=== PATIENT | female | born 1950 | race Asian ===

== ENCOUNTER 2017-01-03 12:34 | Outpatient (RCR) | payer OTHER | END 2017-01-06 | LOC: M CR 12:34 | PROVIDERS: ATTEND Internal Medicine Cardiovascular Disease | DX: I25.10 Atherosclerotic heart disease of native coronary artery without angina pectoris (principal); Z98.61 Coronary angioplasty status ==

== ENCOUNTER 2017-01-07 09:09 | Outpatient (RCR) | payer OTHER | END 2017-02-05 | LOC: M CR 09:09 | PROVIDERS: ATTEND Internal Medicine Cardiovascular Disease | DX: Z51.89 Encounter for other specified aftercare (principal); Z98.61 Coronary angioplasty status; I25.10 Atherosclerotic heart disease of native coronary artery without angina pectoris ==

== ENCOUNTER → 2017-08-17 | Outpatient (REF) | payer OTHER | LOC: M LAB REF 09:40 | DX: N64.59 Other signs and symptoms in breast (principal) | CPT/HCPCS: 88305 ==

== ENCOUNTER → 2018-10-20 | Outpatient (REF) | payer MEDICARE ==
[2018-10-20 12:54] LABS: BASO % 0.5 % (0.0-1.0); EOS # 0.2 10^3/uL (0.0-0.50); EOS % 2.9 % (0.0-3.0); HEMATOCRIT 36.8 % (36.0-47.0); HEMOGLOBIN 11.9 g/dl (12.0-15.5); MEAN CORPUSCULAR HEMOGLOBIN 28.9 pg (27.0-33.0); MEAN CORPUSCULAR HGB CONC 32.3 g/dl (32.0-36.5); MEAN CORPUSCULAR VOLUME 89.3 fl (80.0-96.0); MONO # 0.4 10^3/uL (0.0-0.8); MONO % 7.3 % (0.0-5.0); NEUTROPHILS % 70.8 % (36.0-66.0); PLATELET COUNT, AUTOMATED 250 10^3/uL (150-450); RED BLOOD COUNT 4.12 10^6/uL (4.00-5.40); WHITE BLOOD COUNT 5.6 10^3/uL (4.0-10.0)
[2018-10-20 13:12] LABS: ALBUMIN 3.9 GM/DL (3.2-5.2); ALT/SGPT 36 U/L (12-78); BILIRUBIN,TOTAL 0.4 MG/DL (0.2-1.0); BLOOD UREA NITROGEN 8 MG/DL (7-18); CALCIUM LEVEL 8.9 MG/DL (8.8-10.2); CARBON DIOXIDE LEVEL 25 MEQ/L (21-32); CHLORIDE LEVEL 104 MEQ/L (98-107); CHOLESTEROL LEVEL 112 MG/DL (<200); CHOLESTEROL RISK RATIO 2.871 (<5); CREATININE FOR GFR 0.73 MG/DL (0.55-1.30); GLOMERULAR FILTRATION RATE > 60.0 (>45); GLUCOSE, FASTING 105 MG/DL (70-100); HDL CHOLESTEROL 39 MG/DL (>40); LDL CHOLESTEROL 40 MG/DL (<100); NON-HDL-C 73 MG/DL; POTASSIUM SERUM 4.7 MEQ/L (3.5-5.1); SODIUM LEVEL 135 MEQ/L (136-145); TOTAL PROTEIN 8.2 GM/DL (6.4-8.2); TRIGLYCERIDES LEVEL 166 MG/DL (<150)
[2018-10-20 13:34] LABS: MALB URINE SIEMENS 23.3 MG/L; MAU/CREAT RATIO 14.2 MCG/MG (0.0-30.0)
[2018-10-20 13:42] LABS: HEMOGLOBIN A1c 8.2 %
== END ==
LOC: M SFHCPLAZ 08:44
PROVIDERS: ATTEND Physician Assistant Medical
DX: E11.9 Type 2 diabetes mellitus without complications (principal); I10 Essential (primary) hypertension; E78.2 Mixed hyperlipidemia

== ENCOUNTER → 2018-12-12 | Outpatient (REF) | payer MEDICARE, OTHER ==
[2018-12-12 13:21] LABS: HEMOGLOBIN A1c 6.5 %
== END ==
LOC: M SFHCPLAZ 09:08
PROVIDERS: ATTEND Physician Assistant Medical
DX: E11.9 Type 2 diabetes mellitus without complications (principal)

== ENCOUNTER → 2019-01-15 | Outpatient (REF) | payer MEDICARE, OTHER ==
[2019-01-15 15:26] LABS: BLOOD UREA NITROGEN 13 MG/DL (7-18); CALCIUM LEVEL 9.9 MG/DL (8.8-10.2); CARBON DIOXIDE LEVEL 27 MEQ/L (21-32); CHLORIDE LEVEL 103 MEQ/L (98-107); CREATININE FOR GFR 0.97 MG/DL (0.55-1.30); GLOMERULAR FILTRATION RATE > 60.0 (>39); GLUCOSE, FASTING 136 MG/DL (70-100); POTASSIUM SERUM 4.5 MEQ/L (3.5-5.1); SODIUM LEVEL 139 MEQ/L (136-145); TROPONIN I < 0.02 NG/ML (< 0.10)
[2019-01-15 15:52] LABS: CREATININE, URINE < 13.0 MG/DL; MALB URINE SIEMENS < 5.0 MG/L
== END ==
LOC: M SFHCPLAZ 13:33
PROVIDERS: ATTEND Family Medicine
DX: I16.0 Hypertensive urgency (principal)
CPT/HCPCS: 36415; 80048; 82043; 84484; G0463

== ENCOUNTER → 2019-04-02 | Outpatient (REF) | payer MEDICARE, OTHER ==
[2019-04-02 16:48] LABS: BLOOD UREA NITROGEN 23 MG/DL (7-18); CALCIUM LEVEL 9.6 MG/DL (8.8-10.2); CARBON DIOXIDE LEVEL 25 MEQ/L (21-32); CHLORIDE LEVEL 105 MEQ/L (98-107); CREATININE FOR GFR 0.97 MG/DL (0.55-1.30); GLOMERULAR FILTRATION RATE > 60.0 (>39); GLUCOSE, FASTING 125 MG/DL (70-100); POTASSIUM SERUM 4.6 MEQ/L (3.5-5.1); SODIUM LEVEL 138 MEQ/L (136-145)
[2019-04-02 16:58] LABS: VITAMIN B12 LEVEL 240 PG/ML
[2019-04-02 16:59] LABS: FOLATE 8.3 NG/ML
[2019-04-02 17:08] LABS: HEMOGLOBIN A1c 7.3 %
[2019-04-02 17:20] LABS: CREATININE, URINE 19.1 MG/DL; MAU/CREAT RATIO 26.1 MCG/MG (0.0-30.0)
== END ==
LOC: M SFHCLERA 12:16
PROVIDERS: ATTEND Family Medicine
DX: E11.42 Type 2 diabetes mellitus with diabetic polyneuropathy (principal)
CPT/HCPCS: 80048; 82043; 82607; 82746; 83036; G0463

== ENCOUNTER → 2019-04-20 | Outpatient (CLI) | payer MEDICARE, OTHER ==
--- NOTE | 2019-04-20 13:58 | REP ---
RIGHT UPPER QUADRANT ULTRASOUND: Real-time sonographic evaluation of the right upper quadrant performed. Gallbladder demonstrates diffuse wall thickening 6 mm in diameter. No gallstones are seen. Hypoechoic nodule along the anterior wall of the gallbladder measures 1 cm in diameter. There is no intrahepatic or extrahepatic biliary dilatation, common bile duct measuring 5 mm. Liver demonstrates diffuse increased echotexture suggesting diffuse fibrofatty infiltration. There appears to be a cyst anterior in the left lobe 1.3 x 0.7 x 1.6 cm. A hypoechoic nodule centrally in the liver measures 1.3 x 1.8 x 2.0 cm. Pancreas is grossly unremarkable. Right kidney demonstrates normal size 11.3 cm in length with no hydronephrosis. A cyst mid right kidney measures 1.5 x 1.6 x 1.9 cm. IMPRESSION: Gallbladder wall thickening. Hypoechoic nodule along the anterior wall of the gallbladder measures 1 cm in diameter and is of uncertain significance. Diffuse fibrofatty infiltration of the liver with hypoechoic nodule centrally 2 cm in maximum diameter. Recommend MRI liver with dynamic administration of contrast for further evaluation of these abnormalities. Electronically Signed by Franco Givens MD 04/23/2019 04:12 P
== END ==
LOC: M LRY 09:17
PROVIDERS: ATTEND Family Medicine
DX: R10.11 Right upper quadrant pain (principal)

== ENCOUNTER → 2019-04-24 | Outpatient (REF) | payer MEDICARE, OTHER ==
[2019-04-24 18:00] LABS: ALBUMIN 3.8 GM/DL (3.2-5.2); ALT/SGPT 19 U/L (12-78); BILIRUBIN,TOTAL 0.6 MG/DL (0.2-1.0); BLOOD UREA NITROGEN 12 MG/DL (7-18); CALCIUM LEVEL 9.6 MG/DL (8.8-10.2); CARBON DIOXIDE LEVEL 33 MEQ/L (21-32); CHLORIDE LEVEL 104 MEQ/L (98-107); CREATININE FOR GFR 0.93 MG/DL (0.55-1.30); GLOMERULAR FILTRATION RATE > 60.0 (>39); GLUCOSE, FASTING 99 MG/DL (70-100); SODIUM LEVEL 143 MEQ/L (136-145); TOTAL PROTEIN 7.8 GM/DL (6.4-8.2)
== END ==
LOC: M SFHCLERA 13:37
PROVIDERS: ATTEND Family Medicine
DX: R10.11 Right upper quadrant pain (principal)
CPT/HCPCS: 80053; G0463

== ENCOUNTER → 2019-05-14 | Outpatient (CLI) | payer MEDICARE, OTHER ==
[~2019-05-14] MED LIST: PROHANCE 279.3MG/ML 15ML VIAL (A9576) As Ordered ONE
== END ==
LOC: M RAD 13:59
PROVIDERS: ATTEND Family Medicine
DX: K76.89 Other specified diseases of liver (principal); Q44.1 Other congenital malformations of gallbladder

== ENCOUNTER → 2019-06-05 | Outpatient (CLI) | payer MEDICARE, OTHER ==
[~2019-06-05] MED LIST changes: +ISOVUE-370 76% 100ML VIAL (Q9967) As Ordered ONE; -PROHANCE 279.3MG/ML 15ML VIAL (A9576) As Ordered ONE
--- NOTE | 2019-06-05 15:33 | REP ---
CT of the abdomen - pelvis without and with IV contrast, without bowel contrast: There is multiphase imaging after IV contrast. Studies performed for evaluation of hepatic nodules identified on ultrasound dated 04/20/2019. Without IV contrast there is a nodule hypodense hepatic parenchyma anteriorly inferiorly in the left lobe of the liver measuring 2 cm in diameter. On the arterial phase. This approaches isolate density with the hepatic parenchyma, the portal venous phase and demonstrates peripheral enhancement and on the delayed equilibrium phase and becomes almost isointense with hepatic parenchyma. This may represent a hemangioma within a typical enhancement pattern. Without IV contrast. There is a second nodule centrally in the right lobe of the liver measuring 18 mm in diameter. This remains a slightly hypointense on the arterial phase and portal venous phases and demonstrates mild enhancement on the delayed equilibrium phase. This enhancement pattern is not typical for hemangioma. Therefore, MRI might be considered for further evaluation of these hepatic nodular densities as there enhancement patterns are a typical for hemangioma. The hepatic parenchyma is otherwise homogeneous. There is a 1 cm mesenteric node in the skip hepatis. The visualized lower lung moore demonstrate multiple lung nodules bilaterally. There are no comparison studies. The multiplicity of findings as bothersome as it suggest metastatic disease. I would recommend follow-up chest CT of IV contrast for further evaluation. The pancreas and spleen are unremarkable. The adrenals are unremarkable. The kidneys are unremarkable except for a Bosniak type 1 18 ml right renal cortical cyst. There is a tiny left renal hypodensity at the mid pole measuring 5 mm thick cannot be further characterized. The abdominal aorta is unremarkable. There are multiple normal-sized periaortic lymph nodes. There is at least one borderline enlarged node measuring up to 9 ml. There is a short axis. The bowel is unremarkable. The mesentery is unremarkable. Pelvis: The appendix is unremarkable. The bladder is unremarkable. The uterus and adnexa are unremarkable. There is no ascites or adenopathy. There are no lytic, blastic or destructive skeletal changes. Impression: There are two hepatic nodules of enhancement patterns as described. These enhancement patterns are not typical for hemangiomas. Therefore, consideration might be given to hepatic MRI for further evaluation. Within the visualized lower lung moore are multiple lung nodules concerning for metastatic disease. Follow-up chest CT with IV contrast is recommended. There is a 1 cm mesenteric node in the skip hepatis. There are multiple normal size periaortic nodes. These one of these nodes is borderline enlarged. There is no ascites. There are renal cortical cysts as described. Electronically Signed by Franco Seay MD 06/05/2019 03:24 P
== END ==
LOC: M RAD 13:50
PROVIDERS: ATTEND Family Medicine
DX: K76.89 Other specified diseases of liver (principal)
CPT/HCPCS: 74178; Q9967

== ENCOUNTER → 2019-06-22 | Outpatient (CLI) | payer MEDICARE, OTHER ==
--- NOTE | 2019-06-22 10:11 | REP ---
Clinical: Follow up pulmonary nodules. Technique: Axial contrast enhanced images from the thoracic inlet to the upper abdomen with coronal and sagittal re-formations using 75 ml Isovue 370 intravenous contrast material. Comparison: The lung base images from abdominal CT dated 06/05/2019. Findings: The lung moore demonstrate innumerable nodules measuring up to approximately 13 mm diameter along with mediastinal and hilar adenopathy and areas of consolidation primarily noted in the left upper lobe and lingula with scattered ground-glass opacities. Element of pulmonary vascular congestion also appreciated. No effusion. No pneumothorax. Tracheobronchial tree is patent. Cardiomegaly suggested with atherosclerotic disease to the coronary arteries. Thoracic aorta is normal. Pulmonary arteries are grossly normal. Musculoskeletal structures are intact without focal abnormality. Impression: 1. Innumerable scattered pulmonary nodules up to 13 mm and mediastinal/hilar adenopathy most concerning for metastatic disease unless proven otherwise. 2. Evidence for pulmonary vascular congestion including cephalization, increased interstitial markings, scattered ground-glass opacities and cardiomegaly. Electronically Signed by Leandro Lanier MD 06/22/2019 10:03 A
== END ==
LOC: M RAD 09:26
PROVIDERS: ATTEND Family Medicine
DX: R91.8 Other nonspecific abnormal finding of lung field (principal)
CPT/HCPCS: 71260; Q9967

== ENCOUNTER → 2019-07-04 | Outpatient (CLI) | payer MEDICARE, OTHER ==
[~2019-07-04] MED LIST changes: +ATIV1TAB10 PO; +CHLO125TA PO; +CORE6.25 PO; +CYMB1CAP4 PO; +GLYB3TAB2 PO; +HYDR-3363 PO; +ISOS30TA4 PO; -ISOVUE-370 76% 100ML VIAL (Q9967) As Ordered ONE; +JANU50TA25 PO; +LIPI20TA PO; +LISI40TA PO; +NEUR800T PO; +NITR0.4S14 SL; +PLAV1TAB2 PO
--- NOTE | 2019-07-04 18:10 | REP ---
PET/CT: History: Restaging breast carcinoma. Left breast carcinoma diagnosed in July 2010 treated with lumpectomy, radiation therapy and endocrine therapy. Comparisons: Comparison CT study of the chest June 22, 2019. Comparison abdomen CT study June 05, 2019. TECHNIQUE: 59 minutes following the intravenous injection of a 8.14 mCi dose of F-18 FDG, three-dimensional PET scintigraphy is acquired from the skull base to the proximal thighs. Triplanar noncontrast CT scanning is acquired through the same anatomic range for attenuation correction, and image registration with scan parameters optimized to minimize radiation exposure to the patient. PET scintigraphy and CT datasets were fused and displayed on a workstation with multiplanar and projection display capability. PET/CT Findings: There are multiple noncalcified pulmonary nodules. Two or three of these are hypermetabolic. Maximum standard uptake value ranges up to 5.52 from 2.36 in the hypermetabolic nodes. Most of the smaller ones show visible but non hypermetabolic uptake. There is hypermetabolic hilar and precarinal mediastinal omero uptake. Maximum standard uptake value in the mediastinal foci is between 4.20 and 5.55. There are bilateral hilar and subcarinal and precarinal foci of omero uptake in the mediastinum and hilar regions. There is left axillary omero hypermetabolic uptake, maximum SUV 5.25 . There is left supraclavicular hypermetabolic uptake in adenopathy, 6.80. There is a focus of mildly hypermetabolic uptake in the right breast, 3.56. There are several hypermetabolic metastatic foci in the liver with maximum SUV value ranging up to 6.31 in the right lobe lesion. There is multifocal hypermetabolic omero uptake in the abdomen involving celiac axis, caval portal, periaortic nodes. Maximum standard uptake value ranges up to 6.99 in these lymph nodes. Several small periaortic lymph nodes are seen. There is a left iliac hypermetabolic omero focus, 5.56 in a small lymph node. Lastly, there is multifocal metastatic hypermetabolic uptake in the skeleton. There is a small intramedullary lesion in the subtrochanteric femur on the right with maximum SUV value 7.65. There is a focus in the right iliac bone, 6.19. There is a focus in the right side of the upper sacrum, 3.87, there is a sclerotic hypermetabolic lesion in the T12 vertebral body centrally. There is a fairly large vertebral body lytic lesion with hypermetabolic uptake in the C6 vertebral body. Maximum standard uptake value here is 8.41. Consider MRI study of the cervical spine to assess for epidural involvement. There are hypermetabolic small lesions in the right side of the C1 and in the right side of the C2 vertebral bodies as well, maximum standard uptake value 6.7 Impression: There is evidence of widespread metastatic disease involving the lungs, liver, upper abdominal and retroperitoneal nodes, left axillary and left supraclavicular nodes and the skeleton. There is a small focus of mildly increased uptake in the right breast. Electronically Signed by Leighton Moore MD 07/04/2019 07:39 P
== END ==
LOC: M PLARAD 12:25
PROVIDERS: ATTEND Internal Medicine Medical Oncology
DX: C50.812 Malignant neoplasm of overlapping sites of left female breast (principal)
CPT/HCPCS: 78815; A9552

== ENCOUNTER → 2019-07-20 | Outpatient (CLI) | payer MEDICARE, OTHER ==
[~2019-07-20] MED LIST changes: +ATIV1TAB7 PO; +PROHANCE 279.3MG/ML 15ML VIAL (A9576) As Ordered ONE
--- NOTE | 2019-07-21 11:53 | REPVR ---
PROCEDURE INFORMATION: Exam: MR Cervical Spine Without and With Contrast Exam date and time: 07/20/2019 3:52 PM Age: 68 years old Clinical indication: Abnormal findings; Abnormal xray or scan of neck and cervical spine; Patient HX: Breast CA; Additional info: Eval c 6 lesion on pet TECHNIQUE: Imaging protocol: Multiplanar magnetic resonance images of the cervical spine without and with intravenous contrast. Contrast material: PROHANCE; Contrast volume: 14 ml; Contrast route: IV; COMPARISON: PT PET/CT Skull/mid thigh 07/04/2019 2:25 PM FINDINGS: Motion degraded study. Multiple T2 hyperintense, T1 marrow effacing, contrast enhancing bone lesions are present as seen on the PET-CT, including in the right lateral masses of C1 and C2 and involving the majority of the C6 vertebral body. While there is edema associated with these lesions, there is no significant pathologic compression deformities at this time. There is straightening of the normal cervical lordosis with no spondylolisthesis. There is abnormal spinal cord T2 hyperintense edema from mid C5 through mid C6. At C2-C3, there is no significant spinal canal or neural foraminal narrowing. At C3-C4, there is no significant spinal canal narrowing. Moderate right and mild left neural foraminal narrowing. At C4-C5, there is mild spinal canal narrowing. Mild right neural foraminal narrowing. At C5-C6, posterior disc osteophyte complex and ligamentum flavum hypertrophy is present with severe spinal canal narrowing. Severe bilateral neural foraminal narrowing from uncovertebral and facet hypertrophy. At C6-C7, circumferential disc bulge with posterior disc osteophyte complex and ligamentum flavum hypertrophy is present, with severe spinal canal narrowing. Moderate left and mild right neural foraminal narrowing. At C7-T1, circumferential disc bulge is present with mild to moderate spinal canal narrowing. IMPRESSION: Multifocal skeletal metastatic lesions as seen on the comparison PET-CT, involving C1, C2, and C6 with no pathologic compression deformities. Multilevel degenerative change, including severe spinal canal stenosis at C5-C6 and C6-C7 with cord edema/myelomalacia from C5 through C6. Electronically signed by: Stanislaw Rojo On 07/21/2019 11:53:00 AM
== END ==
LOC: M RAD 15:47
PROVIDERS: ATTEND Internal Medicine Medical Oncology
DX: S14.156A Other incomplete lesion at C6 level of cervical spinal cord, initial encounter (principal); M48.02 Spinal stenosis, cervical region
CPT/HCPCS: 72156; A9576

== ENCOUNTER 2019-07-25 12:41 | Inpatient (IN) | payer MEDICARE, OTHER ==
[~2019-07-25] VITALS: Ht 157.5 cm; Wt 73.5 kg
[~2019-07-25 12:41] MED LIST changes: -ACET-907 PO; -ACETAMINOPHEN 325 MG TAB As Ordered ONE; -ACETAMINOPHEN TAB 650MG DOSE (2X325MG) PO PRN; -ATOR40TA75 PO; -ISOVUE-300 61% 50ML VIAL (Q9967) As Ordered ONE; -JANU50TA8 PO; -LIDOCAINE 1% MDV 20ML VIAL As Ordered ONE; -MIDAZOLAM INJ 2 MG/2 ML VIAL (J2250) As Ordered ONE; -RA B2500 PO; -SODIUM BICARBONATE 8.4% INJ 50MEQ 50 ML VIAL As Ordered ONE; -diphenhydrAMINE INJ 50MG/ML VIAL (J1200) As Ordered ONE; -fentaNYL 100 MCG/2 ML INJECTION (J3010) As Ordered ONE
[2019-07-25] MEDS ORDERED: ISOVUE-370 76% 100ML VIAL (Q9967) As Ordered ONE (13:51)
[2019-07-25 14:12] LABS: BASO # 0.1 10^3/uL (0.0-0.2); BASO % 0.6 % (0.0-1.0); EOS # 0.5 10^3/uL (0.0-0.5); EOS % 5.6 % (0.0-3.0); HEMATOCRIT 28.8 % (36.0-47.0); LYMPH # 1.7 10^3/uL (1.5-5.0); LYMPH % 19.7 % (24.0-44.0); MEAN CORPUSCULAR HEMOGLOBIN 27.4 pg (27.0-33.0); MEAN CORPUSCULAR HGB CONC 31.3 g/dl (32.0-36.5); MEAN CORPUSCULAR VOLUME 87.5 fl (80.0-96.0); MONO # 0.6 10^3/uL (0.0-0.8); MONO % 6.7 % (0.0-5.0); NEUTROPHILS # 5.8 10^3/uL (1.5-8.5); NEUTROPHILS % 66.7 % (36.0-66.0); PLATELET COUNT, AUTOMATED 262 10^3/uL (150-450); RED BLOOD COUNT 3.29 10^6/uL (4.00-5.40); WHITE BLOOD COUNT 8.6 10^3/uL (4.0-10.0)
[2019-07-25 14:23] LABS: INR 0.96; PROTHROMBIN TIME 12.5 SECONDS (11.8-14.0)
[2019-07-25 14:47] LABS: ALBUMIN 3.4 GM/DL (3.2-5.2); BILIRUBIN,DIRECT 0.1 MG/DL (0.0-0.2); BILIRUBIN,TOTAL 0.3 MG/DL (0.2-1.0); CK-MB VALUE MASS 1.6 NG/ML (<3.6); GLOMERULAR FILTRATION RATE 58.4 (>39); MB/CK RELATIVE INDEX 1.16 (< OR =4); POTASSIUM SERUM 4.8 MEQ/L (3.5-5.1); TOTAL PROTEIN 7.3 GM/DL (6.4-8.2); TROPONIN I 0.03 NG/ML (< 0.10)
[2019-07-25] MEDS ORDERED: NS 500 ML IV ONE (15:00)
[2019-07-25] MEDS ORDERED: ONDANSETRON 4MG/2ML VIAL (J2405) IV ONE (15:00)
--- NOTE | 2019-07-25 15:05 | REP ---
CT abdomen and pelvis with IV but without oral contrast: History: Chest and abdomen pain, status post liver biopsy. Comparison PET-CT study July 04, 2019. Comparison abdomen CT June 05, 2019. CT contrast dose: 100 mL of intravenous Isovue 370. CT findings: There is a moderate relatively high attenuation right pleural effusion which is new from the June and May prior imaging. There is a strip of contrast opacified hyperintense blood in the right lateral pleural angle along the right rib cage between it and the liver. I believe this is active extravasation of contrast opacified blood during the CT acquisition. I believe it is pleural. There is no evidence of intraparenchymal hematoma. Multiple hepatic metastases are again seen unchanged. There is no evidence of hemoperitoneum. Upper abdominal and periaortic lymphadenopathy is again noted. No uterine abnormality is seen. Urinary bladder is unremarkable. There is sigmoid colonic diverticulosis. Normal appendix. Impression: Findings consistent with acute right moderate sized hemothorax with active extravasation at the time of CT scanning. Findings were telephoned to the referring provider in the ED at the time of the study. Electronically Signed by Leighton Moore MD 07/25/2019 03:24 P
--- NOTE | 2019-07-25 15:11 | REP ---
CT PULMONARY ANGIOGRAM: WITH IV CONTRAST. HISTORY: Chest pain. Abdomen pain. Status post liver biopsy. COMPARISON STUDIES: Comparison is made with CT study June 22, 2019 and PET/CT exam July 04, 2019. CONTRAST DOSE: 100 mL of Isovue [address] technique: Helical scanning is acquired and overlapping 1.5 mm and contiguous 3 mm axial images are reformatted. In addition, maximum intensity projection and multiplanar re-formation images are generated in sagittal and coronal imaging projections. CT pulmonary angiographic findings: There is good opacification of the pulmonary arterial tree. There is no vessel cutoff or filling defect to suggest pulmonary embolism. Thoracic aorta shows no evidence of aneurysm or dissection. There is a new moderate sized right pleural effusion noted. Its mean Hounsfield unit density measurement is 39 HU. This shows fairly high attenuation suggesting the possibility of hemothorax. There is no evidence of pneumothorax. There are multiple ill-defined pulmonary nodules again noted. There is right hilar lymphadenopathy. No pericardial effusion is seen. There are low-density areas in the dome of the liver. IMPRESSION: Moderate pleural effusion somewhat high in attenuation suggesting right-sided hemothorax. This is a new finding compared with the June 22, 2019 study. Bilateral pleural effusions are noted. Electronically Signed by Leighton Moore MD 07/25/2019 03:24 P
[2019-07-25] MEDS ORDERED: GLUCAGON FOR INJ 1 MG VIAL (J1610) SC PRN (16:15)
[2019-07-25] MEDS ORDERED: GLUCOSE 4 GM CHEW TABLET PO PRN (16:15)
[2019-07-25] MEDS ORDERED: DEXTROSE 50% 50 ML SYRINGE IV PRN (16:15)
--- NOTE | 2019-07-25 16:47 | HPEPDOC ---
General Date of Admission 07/25/19 Date of Service: Jul 25, 2019 Chief Complaint The patient is a 68-year-old female admitted with a reason for visit of Pain With Breathing. Source: Patient, RN/, Old records History of Present Illness 68 year old female with metastatic lesions to bone, liver lungs from yet unknown primary with personal h/o breast cancer in 2010 underwent an outpatient liver biopsy of her liver lesion. Post liver biopsy she stated complaining of pain of respiration. She had a CXR done post procedure which showed new pleural effusion which was not there prior to the procedure. Patient was sent to the ED. CT angio of the chest showed new right effusion suggestive of hemothorax. CT abdomen and pelvis showed acute right moderate sized hemothorax with active extravasation at the time of CT scanning. IR will be taking the patient for embolization. Patient was admitted for Hemothorax post liver biopsy. Complains of abdominal pain in the epigastrium and periumbilical region and bloating. SHe also complains of pain in the right upper quadrant and lower chest sharp in character about 5/10 in intensity pleuritic in nature with no radiation. Abdomin al discomfort has been going on for a few months which in fact started the investigations that lead to the finding of the liver nodule. Home Medications Scheduled Atorvastatin Calcium (Lipitor) 20 Mg Tablet, 1 TAB PO DAILY, (Reported) Carvedilol (Coreg) 6.25 Mg Tablet, 1 TAB PO BID, (Reported) Chlorthalidone (Chlorthalidone) 25 Mg Tablet, 25 MG PO DAILY, (Reported) Clopidogrel Bisulfate (Plavix) 75 Mg Tablet, 1 TAB PO DAILY, (Reported) Gabapentin (Neurontin) 800 Mg Tablet, 1 TAB PO TID, (Reported) Glyburide (Glyburide Micronized) 3 Mg Tablet, 0.5 TAB PO DAILY for diabetes, (Reported) Hydroxyzine HCl (Hydroxyzine HCl) 25 Mg Tablet, 1 TAB PO QID for anxiety, (Reported) Isosorbide Mononitrate (Isosorbide Mononitrate ER) 30 Mg Tab.er.24h, 1 TAB PO DAILY, (Reported) Lisinopril (Lisinopril) 40 Mg Tablet, 1 TAB PO DAILY, (Reported) Nitroglycerin (Nitroglycerin) 0.4 Mg Tab.subl, 1 TAB SL ASDIRECTED for chest pain, (Reported) 1st sign of attack; may repeat every 5 mins; if pain persists after 3 in 15 min, medical attention is recommended Sitagliptin Phos/Metformin HCl (Janumet Xr 50-1,000 mg Tablet) 1 Each Tbmp.24hr, 1 TAB PO BID, (Reported) Allergies Coded Allergies: Penicillins (Verified Allergy, Unknown, 07/02/19) Past Medical History Medical History Liver biopsy of Liver lesion Metastatic malignancy involving lungs, liver, skeleton uncertain etiology, possible recurrent breast cancer. Personal history left breast stage IIA, T2N1 ([place]) M0 invasive ductal carcinoma grade 2, ER/AL strongly positive HER2 negative diagnosed July 2010. s/p Left lumpectomy/sentinel node biopsy July 2010. Adjuvant radiation on the left complete a November 2010. Letrozole , exemestone in 2010 followed by tamoxifen February 2011 - February 2017. Self discontinued some time after 2016 CAD s/p stents DM HTN HLD Gastric Ulcer/gastritis/reflux Family History Significant Family History: Heart disease (father) Social History * Smoker: former Smoker Alcohol: Denies Drugs: denies A-FIB/CHADSVASC A-FIB History Current/History of A-Fib/PAF?: No Review of Systems Constitutional: Denies: Chills, Fever, Night Sweats Eyes: Denies: Pain, Vision change ENT: Denies: Head Aches, Ear Pain, Dysphagia Skin: Denies: Rash, Lesions, Breakdown Pulmonary: Reports: Pleuritic Chest Pain Cardiovascular: Denies: Chest Pain, Palpitations, Lt Headedness Gastrointestinal: Reports: Nausea, Abdominal Pain Genitourinary: Denies: Dysuria, Frequency, Incontinence, Retention Hematologic: Denies: Bruising, Bleeding Excessively Musculoskeletal: Denies: Neck Pain, Back Pain, Joint Pain, Muscle Pain, Spasms Physical Examination General Exam: Positive: Alert, Cooperative, No Acute Distress Eye Exam: Positive: PERRLA, Conjunctiva & lids normal, EOMI; Negative: Sclera icteric ENT Exam: Positive: Atraumatic, Mucous membr. moist/pink, Pharynx Normal Neck Exam: Positive: Supple; Negative: JVD, thyromegaly Chest Exam: Positive: Normal air movement, Diminished (in the righ base) Heart Exam: Positive: Rate Normal, Regular Rhythm, Normal S1, Normal S2; Negative: Murmurs, Rubs Telemetry: Positive: No significant arrhythmia Abdomen Exam: Positive: Normal bowel sounds, Soft, Tenderness (in he epigastrium, RUG, periumbilical region. ) Extremity Exam: Negative: Clubbing, Cyanosis, Edema Skin Exam: Positive: Nl turgor and temperature; Negative: Breakdown, Lesion Neuro Exam: Positive: Strength at 5/5 X4 ext, Normal Tone Vital Signs Vital Signs Date Time Temp Pulse Resp B/P (MAP) Pulse Ox O2 Delivery O2 Flow Rate FiO2 07/25/19 15:15 115/59 (77) 07/25/19 15:11 84 98 Nasal Cannula 2.0 07/25/19 12:53 98.0 07/25/19 12:48 16 Laboratory Data Labs 24H Laboratory Tests 2 07/25/19 13:28: Prothrombin Time 12.5, Prothromb Time International Ratio 0.96, Anion Gap 5L, Glomerular Filtration Rate 58.4, Calcium Level 9.0, Total Bilirubin 0.3, Direct Bilirubin 0.1, Aspartate Amino Transf (AST/SGOT) 18, Alanine Aminotransferase (ALT/SGPT) 18, Alkaline Phosphatase 83, Total Creatine Kinase 138, Creatine Kinase MB 1.6, Creatine Kinase MB Relative Index 1.16, Troponin I 0.03, VB-Drh-T-Type Natriuretic Peptide 207H, Total Protein 7.3, Albumin 3.4, Albumin/Globulin Ratio 0.87L, Lipase 150 07/25/19 13:29: Immature Granulocyte % (Auto) 0.7, Neutrophils (%) (Auto) 66.7H, Lymphocytes (%) (Auto) 19.7L, Monocytes (%) (Auto) 6.7H, Eosinophils (%) (Auto) 5.6H, Basophils (%) (Auto) 0.6, Neutrophils # (Auto) 5.8, Lymphocytes # (Auto) 1.7, Monocytes # (Auto) 0.6, Eosinophils # (Auto) 0.5, Basophils # (Auto) 0.1, Nucleated Red Blood Cells % (auto) 0.0, POC Glucose (Misc Panel) 145H, POC Sodium (Misc Panel) 135L, POC Potassium (Misc Panel) 4.7, POC Chloride (Misc Panel) 99, POC Total CO2 (Misc Panel) 28.0H, POC Blood Urea Nitrogen (Misc Panel 16, POC Ionized Calcium (Misc Panel) 4.9, POC Creatinine (Misc Panel) 1.0, POC Hematocrit (Misc Panel) 30.0L CBC/BMP Laboratory Tests 07/25/19 13:28 07/25/19 13:29 Assessment/Plan 68 year old female with metastatic lesions to bone, liver lungs from yet unknown primary with personal h/o breast cancer in 2010 underwent an outpatient liver biopsy of her liver lesion. Post liver biopsy she stated complaining of pain of respiration. She had a CXR done post procedure which showed new pleural effusion which was not there prior to the procedure. Patient was sent to the ED. CT angio of the chest showed new right effusion suggestive of hemothorax. CT abdomen and pelvis showed acute right moderate sized hemothorax with active extravasation at the time of CT scanning. IR will be taking the patient for embolization. Patient was admitted for Hemothorax post liver biopsy. Hemothorax s/p liver biopsy As per IR going for embolization of bleeding vessel. NPO for now. till cleared by IR Diabetes will continue januvia, glyburide and lispro as per sliding scale Hypertension home meds CAD s/p cardiac stents continue home meds. imdur, plavix, betablocker, statin H/O breast cancer treated from 2010 to 2016 New metastatic lesions in bone, lungs, liver primary to be determined Breast Vs gastric is the other differential due to her ongoing GI complaints and her back ground. follow up Dr Ventura. Plan / VTE VTE Prophylaxis Ordered?: Yes CHANG GARCIA MD Jul 25, 2019 15:54
--- NOTE | 2019-07-25 17:39 | ECGEPIP ---
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
--- NOTE | 2019-07-25 18:03 | IRMSE ---
[facility] IR Moderate Sedation Eval. Date and Time Date: Jul 25, 2019 Time: 16:18 ASA Classification ASA Classification: II-Mild systemic disease, III-Severe systemic dis. Mallampati Score: II NPO: Yes Obstructive Sleep Apnea: No Interval Plan: moderate sedation LUKE MONK MD Jul 25, 2019 18:03
--- NOTE | 2019-07-25 18:05 | POST-OPPD ---
Postoperative Procedure Note Date Of Procedure: Jul 25, 2019 Time Of Procedure: 18:03 PREOPERATIVE DIAGNOSIS: post liver biopsy bleeding. POSTOPERATIVE DIAGNOSIS: same FINDINGS: no active arterial extravasation from intercostal arteries or right hepatic artery branches. Vascular tumor noted in liver without surrounding post biopsy hemorrhage. Likely portal vein branch bleeding which should helio with conservative management PROCEDURE: selective angiogram SURGEON: ashley ANESTHESIA: mod sed ESTIMATED BLOOD LOSS: < 5 ml COMPLICATIONS: none POSTOPERATIVE CONDITION: stable LUKE MONK MD Jul 25, 2019 18:05
[2019-07-25 18:23] LABS: BASO % 0.2 % (0.0-1.0); EOS # 0.5 10^3/uL (0.0-0.5); EOS % 3.6 % (0.0-3.0); HEMATOCRIT 26.3 % (36.0-47.0); HEMOGLOBIN 8.2 g/dl (12.0-15.5); LYMPH # 1.6 10^3/uL (1.5-5.0); MEAN CORPUSCULAR HEMOGLOBIN 27.3 pg (27.0-33.0); MEAN CORPUSCULAR HGB CONC 31.2 g/dl (32.0-36.5); MEAN CORPUSCULAR VOLUME 87.7 fl (80.0-96.0); MONO # 0.7 10^3/uL (0.0-0.8); MONO % 5.7 % (0.0-5.0); NEUTROPHILS # 9.6 10^3/uL (1.5-8.5); NEUTROPHILS % 76.8 % (36.0-66.0); PLATELET COUNT, AUTOMATED 268 10^3/uL (150-450); WHITE BLOOD COUNT 12.5 10^3/uL (4.0-10.0)
[2019-07-25 18:25] VITALS: BP 144/78
[2019-07-25] MEDS ORDERED: JANU50TA8 PO (18:31)
[2019-07-25] MEDS ORDERED: ATOR40TA75 PO (18:31)
[2019-07-25] MEDS ORDERED: ACET-907 PO (18:31)
[2019-07-25] MEDS ORDERED: RA B2500 PO (18:31)
[2019-07-25] MEDS: HumaLOG INSULIN (NovoLOG) PER UNIT SC SCH ×2 (18:44→20:52)
[2019-07-25 18:50] VITALS: BP 149/72
[2019-07-25 19:20] VITALS: BP 142/69
[2019-07-25 19:50] VITALS: BP 141/67
[2019-07-25] MEDS: ONDANSETRON 4MG/2ML VIAL (J2405) IV PRN (19:59)
[2019-07-25] MEDS: PERCOCET 5MG/325MG TAB PO PRN (20:31)
[2019-07-25 20:50] VITALS: BP 158/78
[2019-07-25] MEDS: CARVedilol 6.25 MG TAB PO SCH (20:53)
[2019-07-25] MEDS: GABAPENTIN 400 MG CAP PO SCH (20:53)
[2019-07-25 21:50] VITALS: BP 131/67
[2019-07-25 22:34] LABS: HEMATOCRIT 29.5 % (36.0-47.0); HEMOGLOBIN 9.4 g/dl (12.0-15.5)
[2019-07-26] VITALS (22 sets, daily range): BP systolic 108–180; BP diastolic 57–81
[2019-07-26] MEDS: PERCOCET 5MG/325MG TAB PO PRN ×3 (01:46→20:42)
[2019-07-26 02:01] LABS: HEMATOCRIT 27.7 % (36.0-47.0); HEMOGLOBIN 8.8 g/dl (12.0-15.5)
[2019-07-26 06:04] LABS: BASO % 0.5 % (0.0-1.0); EOS # 0.2 10^3/uL (0.0-0.5); EOS % 2.9 % (0.0-3.0); HEMATOCRIT 26.9 % (36.0-47.0); HEMOGLOBIN 8.6 g/dl (12.0-15.5); LYMPH # 1.6 10^3/uL (1.5-5.0); LYMPH % 26.6 % (24.0-44.0); MEAN CORPUSCULAR HEMOGLOBIN 27.9 pg (27.0-33.0); MEAN CORPUSCULAR VOLUME 87.3 fl (80.0-96.0); MONO # 0.4 10^3/uL (0.0-0.8); NEUTROPHILS # 3.8 10^3/uL (1.5-8.5); NEUTROPHILS % 62.7 % (36.0-66.0); PLATELET COUNT, AUTOMATED 192 10^3/uL (150-450); RED BLOOD COUNT 3.08 10^6/uL (4.00-5.40); WHITE BLOOD COUNT 6.1 10^3/uL (4.0-10.0)
[2019-07-26 06:31] LABS: BLOOD UREA NITROGEN 17 MG/DL (7-18); CALCIUM LEVEL 8.4 MG/DL (8.8-10.2); CARBON DIOXIDE LEVEL 26 MEQ/L (21-32); CHLORIDE LEVEL 104 MEQ/L (98-107); CREATININE FOR GFR 0.84 MG/DL (0.55-1.30); GLOMERULAR FILTRATION RATE > 60.0 (>39); GLUCOSE, FASTING 92 MG/DL (70-100); POTASSIUM SERUM 4.6 MEQ/L (3.5-5.1); SODIUM LEVEL 136 MEQ/L (136-145)
[2019-07-26] MEDS ORDERED: glyBURIDE 2.5 MG TAB PO SCH (07:30)
[2019-07-26] MEDS: HumaLOG INSULIN (NovoLOG) PER UNIT SC SCH ×4 (07:30→20:45)
[2019-07-26] MEDS: GABAPENTIN 400 MG CAP PO SCH ×3 (09:18→20:43)
[2019-07-26] MEDS: SITagliptin 50 MG TAB (JANUVIA) PO SCH (09:19)
[2019-07-26] MEDS: lisinopriL 40 MG TAB PO SCH (09:19)
[2019-07-26] MEDS: ATORVASTATIN 20 MG TAB PO SCH (09:19)
[2019-07-26] MEDS: CARVedilol 6.25 MG TAB PO SCH ×2 (09:20→20:44)
[2019-07-26] MEDS: ISOSORBIDE MON. (IMDUR) 30 MG XR TAB PO SCH (09:21)
--- NOTE | 2019-07-26 10:22 | IPNPDOC ---
Text Note Date of Service The patient was seen on 07/26/19. NOTE SUBJECTIVE: Continues to have pain in the right lower chest and abdominal dis comfort. No SOB or cough. No fever or chills, No nausea or vomtiing or diarrhea. PHYSICAL EXAM: VITALS: As below General Exam: Positive: Alert, Cooperative, No Acute Distress Eye Exam: Positive: PERRLA, Conjunctiva & lids normal, EOMI; Negative: Sclera icteric ENT Exam: Positive: Atraumatic, Mucous membr. moist/pink, Pharynx Normal Neck Exam: Positive: Supple; Negative: JVD, thyromegaly Chest Exam: Positive: Normal air movement, Diminished (in the righ base) Heart Exam: Positive: Rate Normal, Regular Rhythm, Normal S1, Normal S2; Negative: Murmurs, Rubs Telemetry: Positive: No significant arrhythmia Abdomen Exam: Positive: Normal bowel sounds, Soft, Tenderness (in he epigast rium, RUG, periumbilical region. ) Extremity Exam: Negative: Clubbing, Cyanosis, Edema Skin Exam: Positive: Nl turgor and temperature; Negative: Breakdown, Lesion Neuro Exam: Positive: Strength at 5/5 X4 ext, Normal Tone :Labs and radiology : reviewed 68 year old female with metastatic lesions to bone, liver lungs from yet unknown primary with personal h/o breast cancer in 2010 underwent an outpatient liver biopsy of her liver lesion. Post liver biopsy she stated complaining of pain of respiration. She had a CXR done post procedure which showed new pleural effusion which was not there prior to the procedure. Patient was sent to the ED. CT angio of the chest showed new right effusion suggestive of hemothorax. CT abdomen and pelvis showed acute right moderate sized hemothorax with active extravasation at the time of CT scanning. IR will be taking the patient for embolization. Patient was admitted for Hemothorax post liver biopsy. Hemothorax s/p liver biopsy went for angiogram yesterday .there was not arterial bleeding found so did not need embolization Dr Dick felt this was a bleed from a branch of proal vein and nestor sto spontaneously to monitor HH HH at mid 8s stable will transfuse if drops below 8. pain control with percocet. will get another CXR to monitor the hemothorax. Diabetes will continue januvia and lispro as per sliding scale Hypertension home meds CAD s/p cardiac stents continue home meds. imdur, betablocker, statin will hold plavix due to the bleeding. H/O breast cancer treated from 2010 to 2016 New metastatic lesions in bone, lungs, liver primary to be determined Breast Vs gastric is the other differential due to her ongoing GI complaints and her back ground. follow up Dr Ventura. VS,Martha, I+O VSMartha, I+O Laboratory Tests 07/25/19 13:28 07/25/19 13:29 07/25/19 15:17 07/25/19 22:22 07/26/19 01:48 07/26/19 05:23 Vital Signs Date Time Temp Pulse Resp B/P (MAP) Pulse Ox O2 Delivery O2 Flow Rate FiO2 07/26/19 09:22 18 95 Room Air 07/26/19 09:21 132/60 07/26/19 09:20 91 07/26/19 08:00 97.2 07/25/19 17:40 4 I&O- Last 24 Hours up to 6 AM 07/26/19 06:00 Intake Total 1520 ml Output Total 300 ml Balance 1220 ml CHANG GARCIA MD Jul 26, 2019 10:22
[2019-07-26] MEDS: ONDANSETRON 4MG/2ML VIAL (J2405) IV PRN (11:11)
--- NOTE | 2019-07-26 11:23 | REP ---
CHEST X-RAY: TWO VIEWS. HISTORY: Hemothorax. FINDINGS: There is a moderate to large right-sided effusion consistent with enlarged hemothorax. This is significantly increased from yesterday's chest x-ray. Pulmonary vasculature is congested. Heart size is unchanged. Lungs are exposed at a lesser level of inspiration overall. There are clips in the left axillary soft tissues. IMPRESSION: Significant increase in the size of the now moderate to large right-sided hemothorax since the comparison chest x-ray. A moderate right hemothorax is visible by CT study at 2:13 p.m. on the previous day. There is no visible pneumothorax. Pulmonary vascular congestion is seen. Electronically Signed by Leighton Moore MD 07/26/2019 12:09 P
--- NOTE | 2019-07-26 11:36 | REP ---
IR Aortogram. IR Selective right 9th intercostal artery catheterization and angiogram. IR Selective right 10th intercostal artery catheterization and angiogram. IR Selective celiac artery catheterization and angiogram. IR Sub selective proper hepatic artery catheterization and angiogram. IR Ultrasound guided right femoral artery access. IR Moderate sedation. Clinical Information: Hemorrhage status post liver biopsy. Extravasation on CT. Physician: Dr Kramer.Procedure: The patient was advised of the benefits, risks, and alternatives of the procedure and informed consent was obtained.A time out was performed with verification of the patient's name, MRN, site of procedure, and type of procedure to be performed. The patient was positioned in the supine position on the angiographic table. The site was prepped and draped in the usual sterile fashion.Moderate sedation was performed by the physician including the presence of an independent trained observer who assisted in monitoring the patient's level of consciousness and physiological status. Following the administration of Fentanyl and Versed, the physician spent 60 minutes of continuous hsuz-ih-hupp time with the patient. A dancing instructor radiograph reveals right pleural effusion. The right femoral artery was accessed under ultrasound guidance with a micropuncture kit. A [employer] wire was advanced into the aorta. The micropuncture sheath was exchanged over the wire for a a 5-Malawian vascular sheath. A 5-Malawian flush catheter was advanced over the wire and used to catheterize the abdominal aorta. An aortogram was performed and this demonstrates the lower three intercostal arteries and celiac artery. No active extravasation. The flush catheter was exchanged over the wire for a Burroughs one catheter. The Burroughs one catheter was formed over the aortic bifurcation and used to catheterize the 10th right intercostal artery. An arteriogram was performed and this demonstrates unremarkable right intercostal artery with no active extravasation over the region of the liver. The Burroughs catheter was used under fluoroscopy guidance to catheterize the celiac artery. An arteriogram was performed and this demonstrates patent common hepatic, gastroduodenal, proper hepatic, left, middle and right hepatic arteries. No active extravasation from the liver. The Burroughs catheter under fluoroscopy guidance was used to catheterize the 9th right intercostal artery. An arteriogram was performed and this demonstrates unremarkable ninth intercostal artery coursing over the lower chest and liver. No active extravasation from the distal branch of the intercostal artery. The Burroughs catheter was used to catheterize the celiac artery again. A micro catheter and micro wire was advanced through the diagnostic catheter and used to sub selectively catheterize the right hepatic artery. A magnification right hepatic lobe angiogram was performed. This demonstrates round focus of tumor blush in the right hepatic lobe which was the recently biopsied. No taylor or intralesional hemorrhage. No active extravasation within the liver. The catheter and micro catheter were removed over a wire. A 5-Malawian Mynx device was used to close the right groin arteriotomy and the sheath was removed. Hemostasis achieved and a sterile dressing was applied to the site. Patient tolerated the procedure well and was transferred to PRU in stable condition. Complications: None. Estimated blood loss: Less than 5 ml. Impression: 1. Aortogram, selective celiac arteriogram, sub selective right hepatic arteriograms and selective multiple intercostal arteriograms demonstrate no active arterial extravasation. 2. Bleeding may be venous or portal venous in nature. Continue conservative management with routine H H check and blood transfusions if required. Thank you for this referral. Electronically Signed by Adelita Kramer MD 07/26/2019 11:34 A
[2019-07-26] MEDS ORDERED: LIDOCAINE 1% MDV 20ML VIAL As Ordered ONE (14:53)
[2019-07-26] MEDS ORDERED: MIDAZOLAM INJ 2 MG/2 ML VIAL (J2250) As Ordered ONE (14:54)
[2019-07-26] MEDS ORDERED: flumazeniL 0.5 MG/5 ML VIAL As Ordered ONE (14:55)
[2019-07-26] MEDS ORDERED: KETOROLAC 30 MG/ML VIAL (J1885) As Ordered ONE (18:06)
[2019-07-26] MEDS ORDERED: LIDOCAINE 1% MDV 20ML VIAL SC ONE (18:15)
[2019-07-26] MEDS ORDERED: MIDAZOLAM INJ 2 MG/2 ML VIAL (J2250) IV ONE (18:15)
[2019-07-26] MEDS ORDERED: ACETAMINOPHEN TAB 650MG DOSE (2X325MG) PO PRN (18:15)
[2019-07-26] MEDS ORDERED: NORCO, ANEXSIA 5/325MG TABLET (HYDROcodone/ACETAMINOPHEN) PO PRN (18:15)
[2019-07-26] MEDS ORDERED: BISACODYL 10 MG SUPP PR PRN (18:15)
[2019-07-26] MEDS ORDERED: LEVALBUTEROL 1.25 MG/0.5 ML CONCENTRATE NEB NEB PRN (18:15)
[2019-07-26 19:00] LABS: LDH LACTATE DEHYDROGENASE 196 U/L (84-246)
[2019-07-26] MEDS ORDERED: KETOROLAC 30 MG/ML VIAL (J1885) IV ONE (19:00)
[2019-07-26 19:06] LABS: HEMATOCRIT 28.8 % (36.0-47.0); HEMOGLOBIN 9.1 g/dl (12.0-15.5); MEAN CORPUSCULAR HEMOGLOBIN 27.7 pg (27.0-33.0); MEAN CORPUSCULAR HGB CONC 31.6 g/dl (32.0-36.5); MEAN CORPUSCULAR VOLUME 87.5 fl (80.0-96.0); PLATELET COUNT, AUTOMATED 216 10^3/uL (150-450); RED BLOOD COUNT 3.29 10^6/uL (4.00-5.40); WHITE BLOOD COUNT 8.5 10^3/uL (4.0-10.0)
[2019-07-26 19:13] LABS: PH BODY FLUID 7.292 UNITS (NOT ESTABLISHED); SOURCE, BODY FLUID pH PLEURAL
--- NOTE | 2019-07-26 19:15 | RO ---
DATE OF PROCEDURE: 07/26/2019 PREPROCEDURE DIAGNOSIS: Right hemothorax. POSTPROCEDURE DIAGNOSIS: Right hemothorax. PROCEDURE: Insertion of right lateral #20 chest tube. SURGEON: Samuel Riggs MD DENTOFACIAL ORTHOPEDICS DENTIST: ANESTHESIA: FINDINGS: The chest eluded 1200 mL of what looks like pure blood. He was sent for the requisite studies to include cytologies, hematologies, chemistries, and bacteriologies. DESCRIPTION OF PROCEDURE: Under satisfactory moderate sedation achieved with 4 mg of Versed, the patient was prepped and draped in the usual sterile fashion. Incision was placed in the approximate 5th intercostal space in the inframammary fold. Tunnel was created in the chest without difficulty, and a #24 chest tube was placed without difficulty. The above findings were noted. Chest tube was secured to the chest wall with a #2 Tevdek suture and connected to the Pleur-evac. The patient tolerated the procedure well and a chest x-ray is pending. [facility]
[2019-07-26] MEDS: LEVALBUTEROL 1.25 MG/0.5 ML CONCENTRATE NEB NEB SCH (19:24)
[2019-07-26 19:26] LABS: AMYLASE, BODY FLUID 43 U/L (NOT ESTABLISHED); CHOLESTEROL, BODY FLUID 113 MG/DL (NOT ESTABLISHED); LDH, BODY FLUID 279 U/L (NOT ESTABLISHED); SOURCE, BODY FLUID ALBUMIN PLEURAL; SOURCE, BODY FLUID AMYLASE PLEURAL; SOURCE, BODY FLUID CHOL PLEURAL; SOURCE, BODY FLUID GLUCOSE PLEURAL; SOURCE, BODY FLUID LDH PLEURAL; SOURCE, BODY FLUID TOT PROTEIN PLEURAL; SOURCE, BODY FLUID TRIG PLEURAL; TOTAL PROTEIN, BODY FLUID 6.5 G/DL (NOT ESTABLISHED); TRIGLYCERIDE, BODY FLUID 135 MG/DL (NOT ESTABLISHED)
[2019-07-26 19:29] LABS: APPEARANCE, BODY FLUID TURBID (CLEAR); PLEURAL FL COLOR RED (COLORLESS); SOURCE, BODY FLUID PLEURAL
--- NOTE | 2019-07-26 19:37 | REP ---
CHEST, SINGLE VIEW: Single view of the chest was performed and compared to prior study of the same day. Right pleural fluid has decreased. There is a right chest tube projecting over the right lung base. There is no pneumothorax. Decreased atelectatic change in the right lung base. Otherwise diffuse bilateral interstitial opacities appear unchanged. Heart and mediastinum are unchanged. Electronically Signed by Franco Givens MD 07/26/2019 07:49 P
--- NOTE | 2019-07-26 20:00 | CR ---
DATE OF CONSULTATION: 07/26/2019 The patient is seen at the request of the hospitalist service for what is thought to be hemothorax. HISTORY OF PRESENT ILLNESS: The patient is a 68-year-old Arabic female who has metastatic disease to bone, liver, lungs from an unknown primary with a history of breast cancer in 2010, ER and DE positive, HER2/kavya negative. The patient underwent lumpectomy at that point in time with radiation, followed by chemotherapy and then followed by Tamoxifen, discontinued in 2016. The patient was found to have liver lesion and a liver biopsy was done yesterday. After her liver biopsy, she was found to have a large pleural effusion, which was thought to be blood from the liver biopsy. It was felt that the intercostal artery had been breeched, and the patient was taken to interventional radiology where her intercostal arteries were found to be intact. She continued to increase her pleural effusion and presumed hemothorax over the last 24 hours and I am being asked to drain it. PAST MEDICAL HISTORY: 1. The above breast cancer. 2. Diabetes. 3. Hypertension. 4. Hyperlipidemia. 5. Gastroesophageal reflux disease (GERD). 6. Coronary artery disease, status post stenting in the remote past. MEDICATIONS: At home: - acetaminophen 325 mg four times a day as needed for pain - atorvastatin 40 mg daily - Biotin 25 mcg daily - Coreg 6.5 mg twice a day - chlorthalidone 25 mg daily - Plavix 75 mg daily, on hold since 07/18/2019 - Neurontin 800 mg by mouth three times a day - glyburide 1.5 mg daily - hydroxyzine 25 mg as needed for anxiety four times a day - isosorbide nitrate ER 30 mg daily - Lisinopril 40 mg daily - nitroglycerin 0.4 mg sublingually as needed for chest pain - Janumet by mouth twice a day HABITS: Is a former smoker, does not imbibe alcohol and does not indulge in illicit drugs. TRAVEL HISTORY: The patient is from [place] and hence difficulty taking a one-on-one history, even with an healthcare interpreter via tablet. ALLERGIES: PENICILLIN. REVIEW OF SYSTEMS: From the medical record yesterday: CONSTITUTIONAL: Without fevers, chills, night sweats. EYES: Without diplopia, pain. NOSE: Without epistaxis. PULMONARY: Only complains of pleuritic chest pain. HEART: Without angina. GASTROINTESTINAL: Without nausea or abdominal pain. GENITOURINARY: Without dysuria, hematuria or history of renal stones. HEMATOLOGIC: Without prolonged bleeding times. PHYSICAL EXAMINATION: Obese, female in no acute distress. VITAL SIGNS: Temperature 96.8, pulse 87, respiratory rate 18. She is 90% saturated on room air. Her blood pressure is 120/58/ EYES: Pupils are equal, reactive to light. Extraocular muscles are intact. Sclerae nonicteric. HEAD: Normocephalic. NOSE: Without deformity. MOUTH: Shows mucous membranes are pink and moist. Lips and commissures without lesions. There is no thrush. NECK: Supple. There is no jugular venous distention (JVD). No subcutaneous emphysema. Trachea is midline. LUNGS: Show markedly decreased breath sounds in the right lower hemithorax with a dull percussion note in the right hemithorax. I hear no other wheezes, rhonchi or rales. Percussion note is full to the diaphragm as far as I can tell from her obesity on the left side. CARDIAC: Without murmurs, clicks, gallops or rubs. I cannot feel her point of maximum impulse (PMI). S1, S2 normal. ABDOMEN: Soft, nontender. Bowel sounds positive. There is no hepatomegaly and no costovertebral angle tenderness that I can appreciate. EXTREMITIES: Trace pretibial edema. There is no calf tenderness. No differential swelling of the upper extremities. SKIN: Warm, dry and perfused without cyanosis or mottling, including that of the nailbeds and knees. NEUROLOGIC: II-XII intact. Gross motor and gross sensation intact. Gait is not tested. PSYCHIATRIC: Shows her to be awake and alert, is seemingly understanding through the healthcare interpreter. LABORATORY DATA: Her white count today is 6.1 with a hemoglobin and hematocrit of 8.6 and 26.9. Yesterday at 1 o'clock it was 9 and 28.8. Platelet count is 192, decreased from 262 on admission. Differential shows 62% neutrophils, 26% lymphocytes, 7% monocytes. There are no immature forms and no toxic granulations. Her electrolytes are normal with a BUN and creatinine of 17 and 0.84, glucose 92, and calcium of 8.4. PT/INR is 12.[address] scan done yesterday shows a large pleural effusion on the right side. It was done under angiographic protocol. There is underlying compression of the right lower lobe. She also has emphysematous changes, and there are a number of nodules throughout the left lung and the right lung. There is no pericardial effusion. Great vessels look to be intact. Her chest x-ray done today compared to yesterday's shows an increase in her pleural effusion. Mediastinum is in the midline. IMPRESSION: 1. Probable hemothorax status post liver biopsy. 2. Metastatic cancer, unknown origin, probably recurrent breast. 3. Diabetes. 4. Hypertension. 5. Anemia. PLAN/DISCUSSION: I will place a lateral chest tube to drain her chest. I expect that there is approximately 1000 mL of fluid in there, which is probably going to sleeve turner to be blood.
[2019-07-26] MEDS: DOCUSATE SODIUM 100 MG CAP PO SCH (20:44)
[2019-07-27] VITALS (7 sets, daily range): BP systolic 106–146; BP diastolic 52–71
[2019-07-27] MEDS: LEVALBUTEROL 1.25 MG/0.5 ML CONCENTRATE NEB NEB SCH ×4 (01:53→19:40)
[2019-07-27] MEDS: KETOROLAC 30 MG/ML VIAL (J1885) IV PRN ×3 (05:34→20:04)
[2019-07-27 05:44] LABS: BASO % 0.2 % (0.0-1.0); EOS # 0.1 10^3/uL (0.0-0.5); EOS % 0.9 % (0.0-3.0); HEMATOCRIT 25.7 % (36.0-47.0); HEMOGLOBIN 8.3 g/dl (12.0-15.5); LYMPH # 1.1 10^3/uL (1.5-5.0); LYMPH % 11.1 % (24.0-44.0); MEAN CORPUSCULAR HEMOGLOBIN 28.4 pg (27.0-33.0); MEAN CORPUSCULAR HGB CONC 32.3 g/dl (32.0-36.5); MONO # 0.8 10^3/uL (0.0-0.8); NEUTROPHILS # 8.2 10^3/uL (1.5-8.5); NEUTROPHILS % 79.5 % (36.0-66.0); PLATELET COUNT, AUTOMATED 193 10^3/uL (150-450); RED BLOOD COUNT 2.92 10^6/uL (4.00-5.40); WHITE BLOOD COUNT 10.3 10^3/uL (4.0-10.0)
[2019-07-27 05:55] LABS: CALCIUM LEVEL 8.7 MG/DL (8.8-10.2); CREATININE FOR GFR 1.04 MG/DL (0.55-1.30); GLOMERULAR FILTRATION RATE 55.8 (>39); POTASSIUM SERUM 4.9 MEQ/L (3.5-5.1)
--- NOTE | 2019-07-27 08:58 | REP ---
Chest x-ray: Two views. History: Hemothorax. Comparison study July 25, 2019 and July 26, 2019. The most recent study is from 06:08 p.m. on July 26, 2019 post chest tube placement. Findings: Right chest tube remains in place unchanged. The previously noted pneumothorax is improved. Vascular interstitial markings are somewhat prominent. There are surgical clips in the left axillary soft tissues. Improved level of inspiration today. There is some fissural thickening on the right. Electronically Signed by Leighton Moore MD 07/27/2019 08:49 A
[2019-07-27] MEDS ORDERED: PREVNAR 13 VACCINE SYRINGE (CPT CODE:90670) IM ONE (09:00)
[2019-07-27] MEDS ORDERED: FLUBLOK(EGG FREE)(QUAD)INFLUENZA VACC 0.5ML SYRINGE (90682)18YRS&OLDER IM ONE (09:00)
[2019-07-27] MEDS: ISOSORBIDE MON. (IMDUR) 30 MG XR TAB PO SCH (09:12)
[2019-07-27] MEDS: CARVedilol 6.25 MG TAB PO SCH ×2 (09:12→20:07)
[2019-07-27] MEDS: PANTOPRAZOLE 40MG TAB (PROTONIX) PO SCH (09:12)
[2019-07-27] MEDS: ATORVASTATIN 20 MG TAB PO SCH (09:12)
[2019-07-27] MEDS: GABAPENTIN 400 MG CAP PO SCH ×3 (09:12→20:05)
[2019-07-27] MEDS: DOCUSATE SODIUM 100 MG CAP PO SCH ×2 (09:12→20:05)
[2019-07-27] MEDS: MOM 30ML SUSPENSION UDC PO SCH (09:13)
[2019-07-27] MEDS: HumaLOG INSULIN (NovoLOG) PER UNIT SC SCH ×4 (09:13→21:00)
[2019-07-27] MEDS: PERCOCET 5MG/325MG TAB PO PRN ×2 (09:13→22:00)
[2019-07-27] MEDS: SITagliptin 50 MG TAB (JANUVIA) PO SCH (09:13)
[2019-07-27] MEDS: lisinopriL 40 MG TAB PO SCH (09:13)
--- NOTE | 2019-07-27 09:41 | IPNPDOC ---
Subjective Date Seen The patient was seen on 07/27/19. Subjective Chief Complaint/HPI Feels better, had pain last night after the procedure but better this morning. Able to breathe better. denies any abdominal pain or distension. Objective Physical Examination General Exam: Positive: Alert, Cooperative, No Acute Distress Eye Exam: Positive: PERRLA, Conjunctiva & lids normal, EOMI; Negative: Sclera icteric ENT Exam: Positive: Atraumatic, Mucous membr. moist/pink, Pharynx Normal Neck Exam: Positive: Supple; Negative: JVD, thyromegaly Chest Exam: Positive: Diminished (on the right base), Other (crackles at the righ;t base, CHest tube in palce. ); Negative: Rales, Rhonchi, Wheezing Heart Exam: Positive: Rate Normal, Regular Rhythm, Normal S1, Normal S2; Negative: Murmurs, Rubs Telemetry: Positive: No significant arrhythmia Abdomen Exam: Positive: Normal bowel sounds, Soft, Tenderness (in he epigastrium, RUG, periumbilical region. ) Extremity Exam: Negative: Clubbing, Cyanosis, Edema Skin Exam: Positive: Nl turgor and temperature; Negative: Breakdown, Lesion Neuro Exam: Positive: Strength at 5/5 X4 ext, Normal Tone Assessment /Plan Assessment 68 year old female with metastatic lesions to bone, liver lungs from yet unknown primary with personal h/o breast cancer in 2010 underwent an outpatient liver biopsy of her liver lesion. Post liver biopsy she stated complaining of pain of respiration. She had a CXR done post procedure which showed new pleural effusion which was not there prior to the procedure. Patient was sent to the ED. CT angio of the chest showed new right effusion suggestive of hemothorax. CT abdomen and pelvis showed acute right moderate sized hemothorax with active extravasation at the time of CT scanning. IR will be taking the patient for embolization. Patient was admitted for Hemothorax post liver biopsy. Hemothorax s/p chest tube placement on 07/26/19 CXR had worsened yesterday so Dr Riggs was consulted and a chest tube was placed with drainage of 1200 cc of hemorrhagic fluid. s/p liver biopsy on 07/25/19 went for angiogram on 07/25/19 there was not arterial bleeding found so did not need embolization Dr Dick felt this was a bleed from a branch of portal vein and nestor stop spontaneously HH at mid 8s stable will transfuse if drops below 8. pain control with percocet. cytology form fluid and cytology form liver Bx are pending. Diabetes will continue januvia and lispro as per sliding scale Hypertension home meds CAD s/p cardiac stents continue home meds. imdur, betablocker, statin will hold plavix due to the bleeding. H/O breast cancer treated from 2010 to 2016 New metastatic lesions in bone, lungs, liver primary to be determined Breast Vs gastric is the other differential due to her ongoing GI complaints and her back ground. follow up Dr Ventura. Plan/VTE VTE Prophylaxis Ordered?: Yes VS, I&O, 24H, Fishbone Vital Signs/I&O Vital Signs Date Time Temp Pulse Resp B/P (MAP) Pulse Ox O2 Delivery O2 Flow Rate FiO2 07/27/19 09:13 17 07/27/19 09:12 118/58 07/27/19 09:12 103 07/27/19 08:00 97.2 95 Nasal Cannula 2.0 I&O- Last 24 Hours up to 6 AM 07/27/19 06:00 Intake Total 1670 ml Output Total 2965 ml Balance -1295 ml Laboratory Data 24H LABS Laboratory Tests 2 07/26/19 12:15: Bedside Glucose (Misc Panel) 163H 07/26/19 17:30: Bedside Glucose (Misc Panel) 177H 07/26/19 18:31: Nucleated Red Blood Cells % (auto) 0.0 07/26/19 18:32: Body Fluid pH 7.292, Body Fluid pH Source PLEURAL, Body Fluid WBC (Auto) 2786H, Body Fluid RBC (Auto) 3003, Body Fluid Mononuclear Cells % Auto 38.7H, Fluid Polymorphonuclear Cell % Auto 61.3H, Body Fluid Glucose Source PLEURAL, Body Fluid Glucose 146, Body Fluid Protein Source PLEURAL, Body Fluid Total Protein 6.5, Body Fluid Albumin Source PLEURAL, Body Fluid Albumin 3.0, Body Fluid LDH Source PLEURAL, Body Fluid Lactate Dehydrogenase 279, Body Fluid Amylase Source PLEURAL, Body Fluid Amylase 43, Body Fluid Cholesterol 113, Body Fluid Cholesterol Source PLEURAL, Body Fluid Triglyceride Source PLEURAL, Body Fluid Triglycerides 135, Pleural Fluid Source PLEURAL, Pleural Fluid Color RED, Pleural Fluid Appearance TURBID 07/26/19 20:31: Bedside Glucose (Misc Panel) 208H 3/20/20 05:19: Immature Granulocyte % (Auto) 0.3, Neutrophils (%) (Auto) 79.5H, Lymphocytes (%) (Auto) 11.1L, Monocytes (%) (Auto) 8.0H, Eosinophils (%) (Auto) 0.9, Basophils (%) (Auto) 0.2, Neutrophils # (Auto) 8.2, Lymphocytes # (Auto) 1.1L, Monocytes # (Auto) 0.8, Eosinophils # (Auto) 0.1, Basophils # (Auto) 0.0, Nucleated Red Blood Cells % (auto) 0.0, Anion Gap 4L, Glomerular Filtration Rate 55.8, Calcium Level 8.7L CBC/BMP Laboratory Tests 07/26/19 18:31 07/27/19 05:19 Microbiology Microbiology 07/26/19 Acid Fast Stain, Received Pending 07/26/19 Mycobacterial Culture, Received Pending 07/26/19 Fungal Smear, Received Pending 07/26/19 Fungal Culture, Received Pending 07/26/19 Gram Stain - Final, Resulted 07/26/19 Anaerobic Culture, Resulted Pending 07/26/19 Body Fluid Culture, Received Pending CHANG GARCIA MD Jul 27, 2019 09:41
--- NOTE | 2019-07-27 11:21 | IPN ---
DATE: 07/27/2019 After draining nearly 1200 mL of what looks to be pure blood yesterday Ms. Null is feeling better. Not unreasonably she wants the chest tube out, however, I have told her at least another day. Her vital signs show a maximum temperature (Tmax) of 100.4, now 97.2. Heart rate ranges between 103-113 in a sinus rhythm, respiratory rate 18-20 without the use of accessory muscle who is 95% saturated on 2 liters nasal cannula and whose blood pressure is ranging between 134/61-118/58. Her intake and output for the past 24 hours has been recorded as 1670 in and 2708 out for a negativity of 1000 mL. After the chest tube was placed she put out approximately 150 mL and now 57 mL in the last 10 hours. Here weight today is 73.5 kilos compared to 74.9 kilos yesterday. On physical examination, she has bilateral crackles on either side with the right greater than left. These occur during inspiration and do not clear with coughing. Percussion note is full to the diaphragm. Cardiac exam is without murmurs, clicks, gallops, or rubs. I cannot feel her point of maximum impulse (PMI). S1 and S2 are normal. Abdomen is soft, nontender. Bowel sounds are positive. There is no hepatomegaly, no costovertebral angle (CVA) tenderness. Extremities show trace pretibial edema. No calf tenderness. No differential swelling of the upper extremities. Skin is warm, dry and perfused without cyanosis or mottling, including that of the nail beds and the knees. Neck is supple. There is no jugular venous distention, no subcutaneous emphysema. Trachea is midline. Mouth shows her mucous membranes to be pink and moist. Lips and commissures without lesions. There is no thrush. Eyes show her pupils to be equal and reactive. Extraocular motor intact. Sclerae anicteric. Neurologic shows II-XII intact along with gross motor and gross sensation intact. Gait is not tested. Psychiatric shows her to be awake and alert, oriented times three with appropriate mood and affect and conversational. Her chest x-ray today has vastly improved now with sharp costophrenic angles. Chest tube is in good place. The hemothorax has been relieved. I do not see infiltrates per se on the lateral film. Chest tube is in good place posteriorly. Her white count today is 10.3 with hemoglobin and hematocrit of 8.3 and 27.7 compared to 9.1 and 28 yesterday. This is consistent with her blood loss. She has already been transfused 1 unit packed cells on 07/25/2019. Platelet count is 193 and stable, and differential shows 79% neutrophils, 11% lymphocytes, 8% monocytes. There are no immature forms, no toxic granulations. Her electrolytes are essentially normal with a BUN and creatinine of 23 and 1.04, with glucose of 141 and a calcium 8.7. Most notably her pleural fluid hemoglobin/hematocrit (H/H) were 9.1 and 28.8, consistent with pure blood. Her fluid has returned with a pH of 7.29 and glucose 146 with LDH of 279. She has 2786 white cells of which 38% are mononuclear lymphocytes and 61% are polymorphonucleocyte. This does appear hemothorax with a differential that is proportionate to her serum blood differential. IMPRESSION: 1. Hemothorax. 2. Status post liver biopsy with bleed. 3. Metastatic cancer, unknown origin, probably recurrent breast. 3. Diabetes. 4. Hypertension. 5. Anemia. PLAN and DISCUSSION: I will remove her chest tube from suction today. I will probably be able to remove it tomorrow.
[2019-07-28] VITALS (11 sets, daily range): BP systolic 101–154; BP diastolic 52–76
[2019-07-28] MEDS: LEVALBUTEROL 1.25 MG/0.5 ML CONCENTRATE NEB NEB SCH ×4 (01:44→18:27)
[2019-07-28] MEDS: KETOROLAC 30 MG/ML VIAL (J1885) IV PRN ×2 (05:02→16:49)
[2019-07-28 05:40] LABS: BASO % 0.3 % (0.0-1.0); EOS # 0.5 10^3/uL (0.0-0.5); EOS % 5.2 % (0.0-3.0); HEMATOCRIT 24.9 % (36.0-47.0); HEMOGLOBIN 7.9 g/dl (12.0-15.5); LYMPH # 1.3 10^3/uL (1.5-5.0); LYMPH % 14.3 % (24.0-44.0); MEAN CORPUSCULAR HEMOGLOBIN 28.1 pg (27.0-33.0); MEAN CORPUSCULAR HGB CONC 31.7 g/dl (32.0-36.5); MEAN CORPUSCULAR VOLUME 88.6 fl (80.0-96.0); MONO # 0.7 10^3/uL (0.0-0.8); MONO % 8.3 % (0.0-5.0); NEUTROPHILS # 6.4 10^3/uL (1.5-8.5); NEUTROPHILS % 71.6 % (36.0-66.0); PLATELET COUNT, AUTOMATED 188 10^3/uL (150-450); RED BLOOD COUNT 2.81 10^6/uL (4.00-5.40); WHITE BLOOD COUNT 8.9 10^3/uL (4.0-10.0)
[2019-07-28 06:06] LABS: BLOOD UREA NITROGEN 21 MG/DL (7-18); CARBON DIOXIDE LEVEL 26 MEQ/L (21-32); CHLORIDE LEVEL 106 MEQ/L (98-107); GLOMERULAR FILTRATION RATE > 60.0 (>39); GLUCOSE, FASTING 128 MG/DL (70-100); POTASSIUM SERUM 4.6 MEQ/L (3.5-5.1); SODIUM LEVEL 136 MEQ/L (136-145)
--- NOTE | 2019-07-28 08:00 | REP ---
Clinical: History of hemothorax. Technique: PA and lateral. Comparison: 07/27/2019. Findings: Right-sided chest tube in stable position. Mediastinum and cardiac silhouette are stable. Diffuse bilateral pleuroparenchymal changes suggesting chronic changes and scattered fibroatelectatic changes are stable. No new focal consolidation. No effusion. No obvious pneumothorax. Impression: Stable chest x-ray. No new acute pleuroparenchymal process appreciated. Electronically Signed by Leandro Lanier MD 07/28/2019 07:52 A
[2019-07-28] MEDS: DOCUSATE SODIUM 100 MG CAP PO SCH ×2 (08:54→20:28)
[2019-07-28] MEDS: lisinopriL 40 MG TAB PO SCH (08:54)
[2019-07-28] MEDS: MOM 30ML SUSPENSION UDC PO SCH (08:54)
[2019-07-28] MEDS: HumaLOG INSULIN (NovoLOG) PER UNIT SC SCH ×4 (08:54→20:26)
[2019-07-28] MEDS: GABAPENTIN 400 MG CAP PO SCH ×3 (08:54→20:28)
[2019-07-28] MEDS: PANTOPRAZOLE 40MG TAB (PROTONIX) PO SCH (08:54)
[2019-07-28] MEDS: ATORVASTATIN 20 MG TAB PO SCH (08:55)
[2019-07-28] MEDS: ISOSORBIDE MON. (IMDUR) 30 MG XR TAB PO SCH (08:55)
[2019-07-28] MEDS: SITagliptin 50 MG TAB (JANUVIA) PO SCH (08:55)
[2019-07-28] MEDS: CARVedilol 6.25 MG TAB PO SCH ×2 (08:55→20:26)
--- NOTE | 2019-07-28 09:07 | IPNPDOC ---
Subjective Date Seen The patient was seen on 07/28/19. Subjective Chief Complaint/HPI Feels better, no chest pain or SOB, no abdominal discomfort. Says able to take deep breaths. Using incetive spirometer. Chest tube off suction since yesterday. Hb has dropped to 7.9 . 2 transfuse 2 untis of PRBC. Objective Physical Examination General Exam: Positive: Alert, Cooperative, No Acute Distress Eye Exam: Positive: PERRLA, Conjunctiva & lids normal, EOMI ENT Exam: Positive: Atraumatic, Mucous membr. moist/pink, Pharynx Normal Neck Exam: Positive: Supple Chest Exam: Positive: Normal air movement, Other (chest tube ont h right. right basal crackles.) Heart Exam: Positive: Rate Normal, Bradycardic, Regular Rhythm, Normal S1, Normal S2; Negative: Gallops, Murmurs, Rubs Telemetry: Positive: No significant arrhythmia Abdomen Exam: Positive: Normal bowel sounds, Soft Extremity Exam: Negative: Clubbing, Cyanosis, Edema Skin Exam: Positive: Nl turgor and temperature Neuro Exam: Positive: Strength at 5/5 X4 ext, Normal Tone Assessment /Plan Assessment 68 year old female with metastatic lesions to bone, liver lungs from yet unknown primary with personal h/o breast cancer in 2010 underwent an outpatient liver biopsy of her liver lesion. Post liver biopsy she stated complaining of pain of respiration. She had a CXR done post procedure which showed new pleural effusion which was not there prior to the procedure. Patient was sent to the ED. CT angio of the chest showed new right effusion suggestive of hemothorax. CT abdomen and pelvis showed acute right moderate sized hemothorax with active extravasation at the time of CT scanning. IR will be taking the patient for embolization. Patient was admitted for Hemothorax post liver biopsy. Hemothorax s/p chest tube placement on 07/26/19 s/p liver biopsy on 07/25/19 went for angiogram on 07/25/19 there was not arterial bleeding found so did not need embolization Dr Dick felt this was a bleed from a branch of portal vein and would stop spontaneously pain control with percocet. cytology form fluid neg for malignancy and cytology form liver Bx are pending. Chest tube is off suction now. May come out today. Acute blood loss anemia from hemothorax will transfuse 2 untis of PRBC. Diabetes will continue januvia and lispro as per sliding scale Hypertension home meds CAD s/p cardiac stents continue home meds. imdur, betablocker, statin will hold plavix due to the bleeding. H/O breast cancer treated from 2010 to 2016 New metastatic lesions in bone, lungs, liver primary to be determined Breast Vs gastric is the other differential due to her ongoing GI complaints and her back ground. follow up Dr Ventura. Plan/VTE VTE Prophylaxis Ordered?: Yes VS, I&O, 24H, Fishbone Vital Signs/I&O Vital Signs Date Time Temp Pulse Resp B/P (MAP) Pulse Ox O2 Delivery O2 Flow Rate FiO2 07/28/19 08:55 149/70 07/28/19 08:55 95 07/28/19 08:00 97.4 20 98 Nasal Cannula 2.0 I&O- Last 24 Hours up to 6 AM 07/28/19 06:00 Intake Total 780 ml Output Total 1075 ml Balance -295 ml Laboratory Data 24H LABS Laboratory Tests 2 07/27/19 12:02: Bedside Glucose (Misc Panel) 174H 07/27/19 17:42: Bedside Glucose (Misc Panel) 120H 07/27/19 20:20: Bedside Glucose (Misc Panel) 154H 07/28/19 04:55: Immature Granulocyte % (Auto) 0.3, Neutrophils (%) (Auto) 71.6H, Lymphocytes (%) (Auto) 14.3L, Monocytes (%) (Auto) 8.3H, Eosinophils (%) (Auto) 5.2H, Basophils (%) (Auto) 0.3, Neutrophils # (Auto) 6.4, Lymphocytes # (Auto) 1.3L, Monocytes # (Auto) 0.7, Eosinophils # (Auto) 0.5, Basophils # (Auto) 0.0, Nucleated Red Blood Cells % (auto) 0.0, Anion Gap 4L, Glomerular Filtration Rate > 60.0, Calcium Level 8.0L CBC/BMP Laboratory Tests 07/28/19 04:55 Microbiology Microbiology 07/26/19 Acid Fast Stain, Received Pending 07/26/19 Mycobacterial Culture, Received Pending 07/26/19 Fungal Smear, Received Pending 07/26/19 Fungal Culture, Received Pending 07/26/19 Gram Stain - Final, Complete 07/26/19 Anaerobic Culture - Final, Complete 07/26/19 Body Fluid Culture - Final, Complete CHANG GARCIA MD Jul 28, 2019 09:07
[2019-07-28] MEDS: PERCOCET 5MG/325MG TAB PO PRN ×2 (10:03→18:22)
[2019-07-28] MEDS ORDERED: FUROSEMIDE 40 MG/4 ML VIAL (J1940) IV ONE (12:00)
--- NOTE | 2019-07-28 12:41 | IPN ---
DATE: 07/28/2019 Ms. Null is fairly angry today, which I will discuss later on in the dictation. Her vital signs are stable with a maximum temperature (T max) of 98.0 with a heart rate that ranges between 104 and 88 and is sinus rhythm, respiratory rate of 16 to 20 without the use of accessory muscles who is 98% saturated now on room air and whose blood pressure is ranging between 154/71 to 149/70. Her intake and output over the past 24 hours has been recorded as 780 in and 1297 out for a negativity of 517 mL. She was recorded as having 780 mL in oral intake and 247 mL from the chest tube. In the last 12 hours, she has put out 35 mL. It is more serous than sanguineous now. Weight today is 74.2 kg compared to 73.5 kg yesterday. On physical examination, she has normal vesicular sounds on either side. Percussion notes are full to the diaphragm. Cardiac exam is without murmurs, clicks, gallops or rubs. I cannot feel her point of maximum impulse (PMI). S1, S2 are normal. Abdomen is soft and nontender. Bowel sounds are positive. There is no hepatomegaly. No costovertebral angle tenderness. Extremities show no pretibial edema. No calf tenderness. No differential swelling of the upper extremities. Skin is warm, dry and perfused without cyanosis or mottling, including that of the nail beds and the knees. Neck is supple. There is no jugular venous distention, no subcutaneous emphysema. Trachea is midline. Mouth shows her mucous membranes to be pink and moist. Lips and commissures without lesions. There is no thrush. Eyes show her pupils to be equal and reactive. Extraocular motions intact. Sclerae anicteric. Neurologic shows II-XII intact along with gross motor and gross sensation intact. Gait is not tested. Psychiatric shows her to be awake and alert, oriented times three with an angry mood, normal affect. Her white count today is 8.9, hemoglobin and hematocrit of 7.9 and 24.9, respectively, with a platelet count of 188. Differential shows 71% neutrophils, 14% lymphocytes, 8% monocytes. There are no immature forms. No toxic granulations. Her electrolytes are normal with a BUN and creatinine of 21 and 0.9, a glucose of 128, and a calcium of 8.0. Her chest x-ray done PA and lateral today shows her lung fully expanded to the chest wall. Costophrenic angles are sharp. Chest tube is in good place posteriorly. I see no posterior infiltrates on the lateral film. IMPRESSION: 1. Hemothorax. 2. Status post liver biopsy with hemorrhage. 3. Metastatic cancer, unknown origin, probably recurrent breast. 4. Diabetes. 5. Hypertension. 6. Anemia. PLAN AND DISCUSSION: Both Dr. Rolle and I have talked to her via the car greaser on the iPad. Ms. Null maintains that "a mistake was made" and that she should be compensated for her pain and time in the hospital. I clearly indicated to her that there was no mistake made, but rather she had a complication and that we have taken care of the complication. There will be no compensation forthcoming from us. She is then angry that her has not been allowed in the hospital, and she cannot go home and cook for him, and that he also needs to be taken care of. I have been fairly blunt and told her that he can cook for himself. These are extraordinary times, and it is going to require sacrifices on everyone's part. She is demanding [place] food, and I am not sure whether the hospital can provide that. At that point in time, I left the conversation in the hands of Dr. Rolle. From my perspective, after her transfusion today, she can go home tomorrow. I have pulled her chest tubes. I made the decision to pull her chest tubes prior to my conversation with her via the car greaser. LESLEE
[2019-07-28] MEDS: LACTULOSE 20 GM/30 ML SYRUP UD PO SCH ×2 (14:45→18:19)
[2019-07-28 18:17] LABS: HEMATOCRIT 30.2 % (36.0-47.0); HEMOGLOBIN 9.8 g/dl (12.0-15.5)
[2019-07-29] VITALS: BP 218/92; PULSE 98
[2019-07-29] MEDS: LACTULOSE 20 GM/30 ML SYRUP UD PO SCH ×4 (00:12→11:00)
[2019-07-29] MEDS: KETOROLAC 30 MG/ML VIAL (J1885) IV PRN (00:12)
[2019-07-29 00:45] LABS: CK-MB VALUE MASS < 1.0 NG/ML (<3.6); CPK CREATINE PHOSPHOKINASE 161 U/L (26-192); MB/CK RELATIVE INDEX 0.62 (< OR =4); TROPONIN I 0.03 NG/ML (< 0.10)
[2019-07-29 01:00] VITALS: BP 170/68
[2019-07-29] MEDS: LEVALBUTEROL 1.25 MG/0.5 ML CONCENTRATE NEB NEB SCH ×2 (01:39→08:01)
[2019-07-29 04:00] VITALS: BP 134/78
[2019-07-29 05:17] LABS: BASO % 0.3 % (0.0-1.0); EOS # 0.7 10^3/uL (0.0-0.5); EOS % 7.4 % (0.0-3.0); HEMATOCRIT 28.8 % (36.0-47.0); HEMOGLOBIN 9.4 g/dl (12.0-15.5); LYMPH # 1.4 10^3/uL (1.5-5.0); LYMPH % 15.4 % (24.0-44.0); MEAN CORPUSCULAR HGB CONC 32.6 g/dl (32.0-36.5); MEAN CORPUSCULAR VOLUME 88.9 fl (80.0-96.0); MONO # 0.6 10^3/uL (0.0-0.8); MONO % 6.5 % (0.0-5.0); NEUTROPHILS # 6.5 10^3/uL (1.5-8.5); PLATELET COUNT, AUTOMATED 199 10^3/uL (150-450); RED BLOOD COUNT 3.24 10^6/uL (4.00-5.40); WHITE BLOOD COUNT 9.3 10^3/uL (4.0-10.0)
[2019-07-29 05:38] LABS: CALCIUM LEVEL 8.2 MG/DL (8.8-10.2); CREATININE FOR GFR 1.05 MG/DL (0.55-1.30); GLOMERULAR FILTRATION RATE 55.2 (>39); POTASSIUM SERUM 4.4 MEQ/L (3.5-5.1)
[2019-07-29 08:00] VITALS: BP 160/85
--- NOTE | 2019-07-29 08:33 | REP ---
Clinical: History of pneumothorax. Technique: PA and lateral. Comparison: 07/26/2019, 07/28/2019. Findings: Previously noted right-sided chest tube has been removed. There has been progressively improved aeration and decreased effusions and atelectasis/infiltrates as compared with multiple prior examinations. No obvious pneumothorax. Mediastinum and cardiac silhouette are stable. Skeletal structures are intact. Impression: Diffuse pleuroparenchymal changes (right greater than left) with somewhat improved appearance as compared through 07/26/2019. Electronically Signed by Leandro Lanier MD 07/29/2019 08:25 A
[2019-07-29] MEDS ORDERED: FUROSEMIDE 40 MG/4 ML VIAL (J1940) IV SCH (09:00)
[2019-07-29] MEDS: MOM 30ML SUSPENSION UDC PO SCH (09:30)
[2019-07-29] MEDS: PANTOPRAZOLE 40MG TAB (PROTONIX) PO SCH (09:31)
[2019-07-29] MEDS: GABAPENTIN 400 MG CAP PO SCH (09:31)
[2019-07-29] MEDS: ATORVASTATIN 20 MG TAB PO SCH (09:31)
[2019-07-29] MEDS: CARVedilol 6.25 MG TAB PO SCH (09:31)
[2019-07-29] MEDS: DOCUSATE SODIUM 100 MG CAP PO SCH (09:31)
[2019-07-29 09:32] VITALS: BP 160/85
[2019-07-29] MEDS: SITagliptin 50 MG TAB (JANUVIA) PO SCH (09:32)
[2019-07-29] MEDS: lisinopriL 40 MG TAB PO SCH (09:32)
[2019-07-29] MEDS: ISOSORBIDE MON. (IMDUR) 30 MG XR TAB PO SCH (09:32)
[2019-07-29] MEDS: HumaLOG INSULIN (NovoLOG) PER UNIT SC SCH (09:36)
[2019-07-29] MEDS ORDERED: DOCU100C16 PO (09:41)
[2019-07-29] MEDS ORDERED: SENN8.6T28 PO (09:41)
[2019-07-29] MEDS ORDERED: NORC1TAB7 PO (09:41)
--- NOTE | 2019-07-29 13:34 | ECGEPIP ---
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 No significant change compared with 07/25/2019 at 1319 hrs. Electronically Signed on 07-29-2019 13:34:33 EDT by Guanako Hu
[2019-07-30] MEDS ORDERED: LETR2.5T2 PO (15:32)
[2019-07-30] MEDS ORDERED: IBRA125C PO (15:49)
--- NOTE | 2019-07-30 18:25 | DS.PDOC ---
Discharge Summary General Date of Admission Jul 25, 2019 at 16:12 Date of Discharge 07/29/19 Discharge Summary PROCEDURES PERFORMED DURING STAY: Right sided chest tube DISCHARGE DIAGNOSES: Right hemothorax after liver biopsy Acute blood loss anemia SECONDARY DIAGNOSIS: Metastatic malignancy involving lungs, liver, skeleton uncertain etiology, possible recurrent breast cancer. 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 s/p Left lumpectomy/sentinel node biopsy July 2010. Adjuvant radiation on the left complete a November 2010. Letrozole , exemestone in 2010 followed by tamoxifen February 2011 - February 2017. Self discontinued some time after 2017 CAD s/p stents DM HTN HLD Gastric Ulcer/gastritis/reflux COMPLICATIONS/CHIEF COMPLAINT: Hemothorax On Rt. HISTORY OF PRESENT ILLNESS: See history and physical HOSPITAL COURSE: 68 year old female with metastatic lesions to bone, liver lungs from yet unknown primary with personal h/o breast cancer in 2010 underwent an outpatient liver biopsy of her liver lesion. Post liver biopsy she stated complaining of pain of respiration. She had a CXR done post procedure which showed new pleural effusion which was not there prior to the procedure. Patient was sent to the ED. CT angio of the chest showed new right effusion suggestive of hemothorax. CT abdomen and pelvis showed acute right moderate sized hemothorax with active extravasation at the time of CT scanning. IR will be taking the patient for embolization. Patient was admitted for Hemothorax post liver biopsy. Hemothorax s/p chest tube placement on 07/26/19 s/p liver biopsy on 07/25/19 went for angiogram on 07/25/19 there was not arterial bleeding found so did not need embolization Dr Dick felt this was a bleed from a branch of portal vein and would stop spontaneously pain control with norco cytology form fluid neg for malignancy and cytology form liver Bx are pending. Chest tube is off suction now. May come out today. Acute blood loss anemia from hemothorax transfused 2 units of PRBC. Diabetes will continue januvia and lispro as per sliding scale Hypertension home meds CAD s/p cardiac stents continue home meds. imdur, betablocker, statin will hold plavix due to the bleeding. H/O breast cancer treated from 2010 to 2016 New metastatic lesions in bone, lungs, liver primary to be determined Breast Vs gastric is the other differential due to her ongoing GI complaints and her back ground. follow up Dr Ventura. DISCHARGE MEDICATIONS: Please see below. ALLERGIES: Please see below. PHYSICAL EXAMINATION ON DISCHARGE: VITAL SIGNS: Please see below. General Exam: Positive: Alert, Cooperative, No Acute Distress Eye Exam: Positive: PERRLA, Conjunctiva & lids normal, EOMI ENT Exam: Positive: Atraumatic, Mucous membr. moist/pink, Pharynx Normal Neck Exam: Positive: Supple Chest Exam: Positive: Normal air movement, Right basal crackles. Heart Exam: Positive: Rate Normal, Bradycardic, Regular Rhythm, Normal S1, Normal S2; Negative: Gallops, Murmurs, Rubs Telemetry: Positive: No significant arrhythmia Abdomen Exam: Positive: Normal bowel sounds, Soft Extremity Exam: Negative: Clubbing, Cyanosis, Edema Skin Exam: Positive: Nl turgor and temperature Neuro Exam: Positive: Strength at 5/5 X4 ext, Normal Tone LABORATORY DATA: Please see below. ACTIVITY: [As tolerated]. DIET: As tolerated DISPOSITION: 01 Home, Self-Care. DISCHARGE INSTRUCTIONS: Follow up Dr Riggs in 2 [address] Follow up With Dr Ventura. DISCHARGE CONDITION: [Stable]. TIME SPENT ON DISCHARGE: 35 minutes. Vital Signs/I&Os Vital Signs Date Time Temp Pulse Resp B/P (MAP) Pulse Ox O2 Delivery O2 Flow Rate FiO2 07/29/19 09:32 160/85 07/29/19 09:31 90 07/29/19 08:00 97.4 20 98 Room Air 07/29/19 04:00 I&O- Last 24 Hours up to 6 AM 07/30/19 06:00 Intake Total 240 ml Output Total 600 ml Balance -360 ml Laboratory Data Labs 24H Laboratory Tests 2 07/30/19 09:58: Lab Scanned Report Transfusion Record Microbiology Microbiology 07/26/19 Acid Fast Stain, Received Pending 07/26/19 Mycobacterial Culture, Received Pending 07/26/19 Fungal Smear, Received Pending 07/26/19 Fungal Culture, Received Pending 07/26/19 Gram Stain - Final, Complete 07/26/19 Anaerobic Culture - Final, Complete 07/26/19 Body Fluid Culture - Final, Complete Discharge Medications Scheduled Atorvastatin Calcium (Atorvastatin Calcium) 40 Mg Tablet, 40 MG PO DAILY, (Reported) Biotin (Biotin) 2,500 Mcg Capsule, 2,500 MCG PO DAILY, (Reported) Carvedilol (Coreg) 6.25 Mg Tablet, 6.25 MG PO BID, (Reported) Chlorthalidone (Chlorthalidone) 25 Mg Tablet, 25 MG PO DAILY, (Reported) Clopidogrel Bisulfate (Plavix) 75 Mg Tablet, 75 MG PO DAILY, (Reported) HAS BEEN ON HOLD SINCE 07/18/2019 Docusate Sodium (Docusate Sodium) 100 Mg Capsule, 100 MG PO BID Gabapentin (Neurontin) 800 Mg Tablet, 800 MG PO TID, (Reported) Glyburide (Glyburide Micronized) 3 Mg Tablet, 1.5 MG PO DAILY, (Reported) Isosorbide Mononitrate (Isosorbide Mononitrate ER) 30 Mg Tab.er.24h, 30 MG PO DAILY, (Reported) Letrozole (Letrozole) 2.5 Mg Tablet, 1 TAB PO DAILY Lisinopril (Lisinopril) 40 Mg Tablet, 40 MG PO DAILY, (Reported) Sitagliptin Phos/Metformin HCl (Janumet 50-1,000 mg Tablet) 1 Each Tablet, 1 TAB PO BID, (Reported) Scheduled PRN Acetaminophen (Tylenol) 325 Mg Tablet, 650 MG PO QID PRN for PAIN, (Reported) Hydrocodone/Acetaminophen ([place] 5-325 Tablet) 1 Each Tablet, 1 TAB PO TIDP PRN for pain Hydroxyzine HCl (Hydroxyzine HCl) 25 Mg Tablet, 25 MG PO QID PRN for ANXIETY, (Reported) Nitroglycerin (Nitroglycerin) 0.4 Mg Tab.subl, 0.4 MG SL NITRO PRN for CHEST PAIN, (Reported) Sennosides (Senna) 8.6 Mg Tablet, 1 TAB PO BIDP PRN for CONSTIPATION Allergies Coded Allergies: Penicillins (Verified Allergy, Unknown, 07/02/19) CHANG GARCIA MD Jul 30, 2019 18:25
== END 2019-07-29 12:11 | disposition home or self-care (01) | DRG 920 ==
LOC: M ED 12:41 → M ED INP 16:12 → ENRESERV 16:33 → M PCU 18:25
PROVIDERS: ADMIT Internal Medicine Nephrology; ATTEND Internal Medicine Nephrology
PROC: B4101ZZ Fluoroscopy of Abdominal Aorta using Low Osmolar Contrast (ICD-10-PCS; 2019-07-25)
PROC: B4121ZZ Fluoroscopy of Hepatic Artery using Low Osmolar Contrast (ICD-10-PCS; 2019-07-25)
PROC: B41J1ZZ Fluoroscopy of Other Lower Arteries using Low Osmolar Contrast (ICD-10-PCS; 2019-07-25)
PROC: B41B1ZZ Fluoroscopy of Other Intra-Abdominal Arteries using Low Osmolar Contrast (ICD-10-PCS; 2019-07-25)
PROC: 30233N1 Transfusion of Nonautologous Red Blood Cells into Peripheral Vein, Percutaneous Approach (ICD-10-PCS; principal; 2019-07-25 16:00)
DX: J95.831 Postprocedural hemorrhage of a respiratory system organ or structure following other procedure (principal); J94.2 Hemothorax; C79.51 Secondary malignant neoplasm of bone; C78.7 Secondary malignant neoplasm of liver and intrahepatic bile duct; C78.00 Secondary malignant neoplasm of unspecified lung; D62 Acute posthemorrhagic anemia; C50.912 Malignant neoplasm of unspecified site of left female breast; R58 Hemorrhage, not elsewhere classified; I25.10 Atherosclerotic heart disease of native coronary artery without angina pectoris; Z95.2 Presence of prosthetic heart valve; I10 Essential (primary) hypertension; E11.9 Type 2 diabetes mellitus without complications; Z79.899 Other long term (current) drug therapy; Z88.0 Allergy status to penicillin; E78.5 Hyperlipidemia, unspecified; K21.9 Gastro-esophageal reflux disease without esophagitis; Z87.891 Personal history of nicotine dependence

== ENCOUNTER → 2019-07-25 | Outpatient (CLI) | payer MEDICARE, OTHER ==
[~2019-07-25] MED LIST changes: +ACET-907 PO; +ACETAMINOPHEN 325 MG TAB As Ordered ONE; +ACETAMINOPHEN TAB 650MG DOSE (2X325MG) PO PRN; +ATOR40TA75 PO; +ISOVUE-300 61% 50ML VIAL (Q9967) As Ordered ONE; +JANU50TA8 PO; +LIDOCAINE 1% MDV 20ML VIAL As Ordered ONE; +MIDAZOLAM INJ 2 MG/2 ML VIAL (J2250) As Ordered ONE; -PROHANCE 279.3MG/ML 15ML VIAL (A9576) As Ordered ONE; +RA B2500 PO; +SODIUM BICARBONATE 8.4% INJ 50MEQ 50 ML VIAL As Ordered ONE; +diphenhydrAMINE INJ 50MG/ML VIAL (J1200) As Ordered ONE; +fentaNYL 100 MCG/2 ML INJECTION (J3010) As Ordered ONE
[2019-07-25 12:25] VITALS: BP 139/80
--- NOTE | 2019-07-25 13:19 | REP ---
CHEST, TWO VIEWS: Two views of the chest are performed. Comparison made with CT chest 06/22/2019. Increased interstitial markings bilaterally appear similar to the prior CT scan. There is a new small right pleural effusion. Elevated right hemidiaphragm is unchanged. Mildly prominent right hilar shadow is consistent with mild adenopathy. There are degenerative changes of the spine. Left suprahilar parenchymal opacity is unchanged. IMPRESSION: Stable lung findings as above. There is a new small right pleural effusion. Electronically Signed by Franco Givens MD 07/25/2019 03:19 P
--- NOTE | 2019-07-25 16:44 | REP ---
ULTRASOUND-GUIDED LIVER BIOPSY The procedure was performed under the direct supervision of Dr. Givens. The patient has a history of widespread metastatic disease involving the lungs, liver, upper abdominal and retroperitoneal nodes left axillary and left supraclavicular nodes and the skeleton seen on a previous PET scan dated 07/04/2019. The patient is referred for a biopsy of a lesion in the liver. The risks and benefits of the procedure were explained to the patient and informed consent was obtained. A mass in the right lobe of the liver was localized using ultrasound guidance. The skin was prepped and draped in a sterile fashion. 1% lidocaine was used as a local anesthetic. Using ultrasound guidance a 19/20 gauge coaxial needle biopsy system was inserted and advanced into the mass. Five core biopsy samples were obtained. While the patient was recovering she stated that she had pain on inspiration. The patient was rescanned by ultrasound and there is no evidence of a liver hematoma. However there was a new small right pleural effusion. Dr. Ventura was consulted and came to the department to see the patient. The patient was then sent to the ER for further evaluation. Electronically Signed by ZHANG Brooks 07/25/2019 04:30 P Electronically Signed by Franco Givens MD 07/25/2019 04:36 P
--- NOTE | 2019-07-26 11:36 | REP ---
IR Aortogram. IR Selective right 9th intercostal artery catheterization and angiogram. IR Selective right 10th intercostal artery catheterization and angiogram. IR Selective celiac artery catheterization and angiogram. IR Sub selective proper hepatic artery catheterization and angiogram. IR Ultrasound guided right femoral artery access. IR Moderate sedation. Clinical Information: Hemorrhage status post liver biopsy. Extravasation on CT. Physician: Dr Kramer.Procedure: The patient was advised of the benefits, risks, and alternatives of the procedure and informed consent was obtained.A time out was performed with verification of the patient's name, MRN, site of procedure, and type of procedure to be performed. The patient was positioned in the supine position on the angiographic table. The site was prepped and draped in the usual sterile fashion.Moderate sedation was performed by the physician including the presence of an independent trained observer who assisted in monitoring the patient's level of consciousness and physiological status. Following the administration of Fentanyl and Versed, the physician spent 60 minutes of continuous glhr-hw-rnih time with the patient. A paddle dyeing machine operator radiograph reveals right pleural effusion. The right femoral artery was accessed under ultrasound guidance with a micropuncture kit. A [employer] wire was advanced into the aorta. The micropuncture sheath was exchanged over the wire for a a 5-Ugandan vascular sheath. A 5-Ugandan flush catheter was advanced over the wire and used to catheterize the abdominal aorta. An aortogram was performed and this demonstrates the lower three intercostal arteries and celiac artery. No active extravasation. The flush catheter was exchanged over the wire for a Burroughs one catheter. The Burroughs one catheter was formed over the aortic bifurcation and used to catheterize the 10th right intercostal artery. An arteriogram was performed and this demonstrates unremarkable right intercostal artery with no active extravasation over the region of the liver. The Burroughs catheter was used under fluoroscopy guidance to catheterize the celiac artery. An arteriogram was performed and this demonstrates patent common hepatic, gastroduodenal, proper hepatic, left, middle and right hepatic arteries. No active extravasation from the liver. The Burroughs catheter under fluoroscopy guidance was used to catheterize the 9th right intercostal artery. An arteriogram was performed and this demonstrates unremarkable ninth intercostal artery coursing over the lower chest and liver. No active extravasation from the distal branch of the intercostal artery. The Burroughs catheter was used to catheterize the celiac artery again. A micro catheter and micro wire was advanced through the diagnostic catheter and used to sub selectively catheterize the right hepatic artery. A magnification right hepatic lobe angiogram was performed. This demonstrates round focus of tumor blush in the right hepatic lobe which was the recently biopsied. No taylor or intralesional hemorrhage. No active extravasation within the liver. The catheter and micro catheter were removed over a wire. A 5-Ugandan Mynx device was used to close the right groin arteriotomy and the sheath was removed. Hemostasis achieved and a sterile dressing was applied to the site. Patient tolerated the procedure well and was transferred to PRU in stable condition. Complications: None. Estimated blood loss: Less than 5 ml. Impression: 1. Aortogram, selective celiac arteriogram, sub selective right hepatic arteriograms and selective multiple intercostal arteriograms demonstrate no active arterial extravasation. 2. Bleeding may be venous or portal venous in nature. Continue conservative management with routine H H check and blood transfusions if required. Thank you for this referral. Electronically Signed by Adelita Kramer MD 07/26/2019 11:34 A
--- NOTE | 2019-07-26 18:47 | ECGEPIP ---
[facility] Test Date: 2019-07-25 Pat Name: Imani YEN Department: Room: - Gender: Female Geriatric Physical Therapist: PATRICIA : [id number] Requested By: Franco Castaneda Order Number: [id number] Reading MD: Bernabe Devries Measurements Intervals [place] Rate: 75 P: 8 SD: 158 QRS: 15 QRSD: 90 T: 16 QT: 388 QTc: 436 Interpretive Statements SINUS RHYTHM MODERATE VOLTAGE CRITERIA FOR LVH, CONSIDER NORMAL VARIANT POSSIBLE INFERIOR MYOCARDIAL INFARCTION, PROBABLY OLD No prior tracing in the system Electronically Signed on 07-26-2019 18:47:16 EDT by Bernabe Devries
== END ==
LOC: M IRPRO 09:29
DX: R93.5 Abnormal findings on diagnostic imaging of other abdominal regions, including retroperitoneum (principal); C50.912 Malignant neoplasm of unspecified site of left female breast
CPT/HCPCS: 47000; 71046; 76942; 88307; J1644; J2250; J3010; Q9967

== ENCOUNTER → 2019-08-08 | Outpatient (CLI) | payer MEDICARE, OTHER ==
[~2019-08-08] MED LIST changes: +ACET-907 PO; +ATOR40TA75 PO; +DOCU100C16 PO; +IBRA125C PO; +JANU50TA8 PO; +LETR2.5T2 PO; +NORC1TAB7 PO; +RA B2500 PO; +SENN8.6T28 PO
--- NOTE | 2019-08-08 11:58 | REP ---
CHEST, TWO VIEWS: Two views of the chest are performed and compared to multiple prior studies, most recently 07/29/2019. Diffuse interstitial opacities in the left lung are stable. There is improvement of the parenchymal opacities in the right lung. Very small amount of right pleural fluid or thickening is noted, with improvement compared to the prior exam. Heart and mediastinum are unchanged. There are mild degenerative changes of the spine. IMPRESSION: Underlying interstitial opacities bilaterally again noted. Improved parenchymal opacities on the right. A small amount of right pleural fluid or thickening with improvement since prior study. Electronically Signed by Franco Givens MD 08/08/2019 12:15 P
== END ==
LOC: M LRY 11:08
PROVIDERS: ATTEND Family Medicine
DX: J94.2 Hemothorax (principal); Z93.8 Other artificial opening status; R10.9 Unspecified abdominal pain; Z09 Encounter for follow-up examination after completed treatment for conditions other than malignant neoplasm; C50.919 Malignant neoplasm of unspecified site of unspecified female breast

== ENCOUNTER 2019-12-08 03:40 | Inpatient (IN) | payer MEDICARE, OTHER ==
[2019-12-09] MEDS ORDERED: hydrALAZINE 20MG/ML 1ML VIAL (J0360 PER 20MG) As Ordered ONE (00:24)
[2019-12-09] MEDS ORDERED: METOCLOPRAMIDE INJ 10MG/2ML VIAL (J2765 PER 1) As Ordered ONE (01:55)
[2019-12-09] MEDS ORDERED: MORPHINE 4 MG/ML 1ML VIAL/SYRINGE (J2270) As Ordered ONE ×2 (01:55→04:35)
[2019-12-09] MEDS ORDERED: HYDROMORPHONE HCL 0.5 MG/ 0.5 ML SYRINGE (J1170 PER 1) As Ordered ONE (02:28)
[2019-12-09] MEDS ORDERED: ISOVUE-370 76% 100ML VIAL As Ordered ONE (13:54)
[2019-12-09] MEDS ORDERED: MORPHINE 2 MG/ML 1ML VIAL (J2270) As Ordered ONE (16:36)
[2019-12-09] MEDS ORDERED: HEPARIN 25,000 UNITS/250 ML D5W BAG (100 UNITS/ML) (J1644 PER 1000UNITS) As Ordered ONE (17:36)
[2019-12-09] MEDS ORDERED: HEPARIN SOD (PORCINE) 5000UNITS/ML VIAL (J1644 PER 1000UNITS) As Ordered ONE (17:38)
[2019-12-09] MEDS ORDERED: HumaLOG INSULIN (NovoLOG) PER UNIT As Ordered ONE (17:38)
[2019-12-09] MEDS ORDERED: MIRALAX *UNIT DOSE* 17GM PACKET As Ordered ONE (17:43)
[2019-12-09] MEDS ORDERED: ASPIRIN 81 MG CHEW TABLET As Ordered ONE (17:43)
[2019-12-09] MEDS ORDERED: ONDANSETRON 4 MG TAB As Ordered ONE (18:14)
[2019-12-09] MEDS ORDERED: ONDANSETRON 4 MG ORAL DISINTEGRATING TAB As Ordered ONE (18:16)
== END 2019-12-09 16:06 | disposition home or self-care (01) | DRG 948 ==
LOC: M ED 03:40 → M MS5PR 23:05
PROVIDERS: ADMIT Internal Medicine; ATTEND Internal Medicine
DX: G89.3 Neoplasm related pain (acute) (chronic) (principal); C79.89 Secondary malignant neoplasm of other specified sites; C79.51 Secondary malignant neoplasm of bone; C78.00 Secondary malignant neoplasm of unspecified lung; C78.7 Secondary malignant neoplasm of liver and intrahepatic bile duct; E11.51 Type 2 diabetes mellitus with diabetic peripheral angiopathy without gangrene; I25.2 Old myocardial infarction; I16.0 Hypertensive urgency; Z95.2 Presence of prosthetic heart valve; Z79.899 Other long term (current) drug therapy; Z87.891 Personal history of nicotine dependence

== ENCOUNTER 2019-12-24 11:05 | Outpatient (CLI) | payer MEDICARE, OTHER ==
[2019-12-24] MEDS ORDERED: diphenhydrAMINE 25MG CAP As Ordered ONE (11:56)
[2019-12-24] MEDS ORDERED: ACETAMINOPHEN TAB 650MG DOSE (2X325MG) As Ordered ONE (11:56)
[2019-12-24] MEDS ORDERED: ACETAMINOPHEN TAB 650MG DOSE (2X325MG) ONE (11:56)
[2019-12-24] MEDS ORDERED: diphenhydrAMINE 25MG CAP ONE (11:56)
[2019-12-24] MEDS ORDERED: FUROSEMIDE 20MG/2ML VIAL (J1940) ONE (15:33)
[2019-12-24] MEDS ORDERED: FUROSEMIDE 20MG/2ML VIAL (J1940) As Ordered ONE (15:33)
[2020-02-04] MEDS ORDERED: ANAS1TAB2 PO (14:35)
== END 2019-12-24 17:10 | disposition home or self-care (01) ==
LOC: M INFU 11:05
PROVIDERS: ATTEND Internal Medicine Medical Oncology
DX: D64.9 Anemia, unspecified (principal)
CPT/HCPCS: 36430; 86850; 86900; 86901; 86920; 96374; J1940; P9016

== ENCOUNTER → 2020-01-01 | Outpatient (CLI) | payer MEDICARE, OTHER ==
[~2020-01-01] MED LIST changes: +AMLO1TAB24 PO; +ANAS1TAB2 PO; +ATOR1TAB21 PO; +DULO1CAP6 PO; +GABA-843 PO; +GLIP10TA PO; +LISI-538 PO; +LISI10TA4 PO; +METF10004 PO; +PANT40TA29 PO; +SUCR1TA PO
--- NOTE | 2020-01-14 13:38 | REP ---
PET CT HISTORY: Restaging breast carcinoma. COMPARISON: PET CT study from 07/04/2019. TECHNIQUE: 50 minutes following the intravenous injection of an 8.0 mCi dose of F18 FDG, 3D PET CT acquisition is acquired from the skull base to the proximal thighs in the usual fashion. PET CT FINDINGS: The previous PET CT study showed widespread metastatic disease involving the lungs, liver, abdominal retroperitoneal nodes, left axilla and supraclavicular nodes, and the skeleton. There was a focus in the right breast. Todays PET scintigraphy demonstrates significant response in the soft tissue disease. There is no longer evidence of hypermetabolic focus in the liver. The upper abdominal nodes are no longer hypermetabolic. There is no axillary or supraclavicular hypermetabolic adenopathy. The supraclavicular node is borderline with maximum SUV value 3.14. No pulmonary parenchymal hypermetabolic uptake is seen. There is omero hypermetabolic uptake in the right hilus with maximum SUV value of 4.5. However, there is evidence of some slight progression in the skeletal disease. The right cervical facet joint posterior element lesion has a maximum SUV value of 7.23. C7 and T1 are involved in the anterior bodies where maximum SUV value is 6.36 and 6.99. There is a new left medial scapular border lesion with maximum standard uptake value 3.38. There is a pathologic fracture in a right lateral rib where maximum standard uptake value is 3.25. Right breast uptake SUV is 4.50. IMPRESSION: Improvement is noted in the omero lung, the hepatic disease, and the axillary and supraclavicular disease. There is at least one new lesion in the left scapula. The skeletal sites including the cervicothoracic junction appear to have progressed somewhat. MTDD
== END ==
LOC: M PLARAD 09:00
PROVIDERS: ATTEND Internal Medicine Medical Oncology
DX: C50.911 Malignant neoplasm of unspecified site of right female breast (principal)
CPT/HCPCS: 78815; A9552

== ENCOUNTER 2020-01-24 12:01 | Inpatient (IN) | payer MEDICARE, OTHER ==
[2020-01-24] VITALS (10 sets, daily range): BP systolic 102–156; BP diastolic 53–73
[~2020-01-24] VITALS: Ht 157.5 cm; Wt 64.4 kg
[~2020-01-24 12:01] MED LIST changes: -AMLO1TAB24 PO; -ANAS1TAB2 PO; -ATOR1TAB21 PO; -DULO1CAP6 PO; -GABA-843 PO; -GLIP10TA PO; -LISI-538 PO; -LISI10TA4 PO; -METF10004 PO; -PANT40TA29 PO; -SUCR1TA PO
[2020-01-24] MEDS ORDERED: GABA-843 PO (12:19)
[2020-01-24] MEDS ORDERED: METF10004 PO (12:19)
[2020-01-24] MEDS ORDERED: ATOR1TAB21 PO (12:19)
[2020-01-24] MEDS ORDERED: GLIP10TA PO (12:19)
[2020-01-24] MEDS ORDERED: NITR0.4S14 SL (12:19)
[2020-01-24] MEDS ORDERED: LISI10TA4 PO (12:19)
[2020-01-24] MEDS ORDERED: DULO1CAP6 PO (12:19)
--- NOTE | 2020-01-24 13:03 | REPVR ---
PROCEDURE INFORMATION: Exam: XR Chest, 1 View Exam date and time: 01/24/2020 12:11 PM Age: 69 years old Clinical indication: Shortness of breath; Additional info: Chest pain TECHNIQUE: Imaging protocol: XR of the chest Views: 1 view. COMPARISON: No relevant prior studies available. FINDINGS: Lungs: Unremarkable. No consolidation. Pleural space: Unremarkable. No pleural effusion. No pneumothorax. Heart/Mediastinum: Unremarkable. No cardiomegaly. Bones/joints: Unremarkable. Soft tissues: Left axillary clips. IMPRESSION: No acute findings. . Electronically signed by: Jamie Marina On 01/24/2020 13:02:54 PM
[2020-01-24] MEDS ORDERED: PANTOPRAZOLE 40MG VIAL (C9113 PER 1) IV ONE (13:15)
[2020-01-24 13:19] LABS: BASO % 0.1 % (0.0-1.0); EOS % 0.3 % (0.0-3.0); LYMPH # 1.7 10^3/uL (1.5-5.0); MEAN CORPUSCULAR HEMOGLOBIN 26.6 pg (27.0-33.0); MEAN CORPUSCULAR HGB CONC 31.2 g/dl (32.0-36.5); MEAN CORPUSCULAR VOLUME 85.3 fl (80.0-96.0); MONO # 0.5 10^3/uL (0.0-0.8); MONO % 4.9 % (0.0-5.0); NEUTROPHILS # 7.1 10^3/uL (1.5-8.5); NEUTROPHILS % 75.8 % (36.0-66.0); PLATELET COUNT, AUTOMATED 249 10^3/uL (150-450); RED BLOOD COUNT 1.84 10^6/uL (4.00-5.40); WHITE BLOOD COUNT 9.3 10^3/uL (4.0-10.0)
[2020-01-24] MEDS ORDERED: ISOVUE-370 76% 100ML VIAL As Ordered ONE (13:22)
[2020-01-24 13:30] LABS: HEMATOCRIT 15.7 % (36.0-47.0)
[2020-01-24 13:32] LABS: HEMOGLOBIN 4.9 g/dl (12.0-15.5)
[2020-01-24 13:40] LABS: INR 0.98; PROTHROMBIN TIME 13.2 SECONDS (11.8-14.0)
[2020-01-24 13:41] LABS: PARTIAL THROMBOPLASTIN TIME 26.2 SECONDS (25.0-38.4)
[2020-01-24 13:49] LABS: ALBUMIN 3.6 GM/DL (3.2-5.2); ALT/SGPT 18 U/L (12-78); BILIRUBIN,DIRECT < 0.1 MG/DL (0.0-0.2); BILIRUBIN,TOTAL 0.3 MG/DL (0.2-1.0); TOTAL PROTEIN 7.4 GM/DL (6.4-8.2)
[2020-01-24] MEDS: PANTOPRAZOLE SODIUM 40 MG in D5W 50 ML IV SCH ×3 (13:49→23:14)
--- NOTE | 2020-01-24 13:56 | REPVR ---
PROCEDURE INFORMATION: Exam: CT Abdomen And Pelvis With Contrast Exam date and time: 01/24/2020 1:14 PM Age: 69 years old Clinical indication: Abdominal pain; Additional info: Abdominal pain; Gi bleeding TECHNIQUE: Imaging protocol: Computed tomography of the abdomen and pelvis with intravenous contrast. Radiation optimization: All CT scans at this facility use at least one of these dose optimization techniques: automated exposure control; mA and/or kV adjustment per patient size (includes targeted exams where dose is matched to clinical indication); or iterative reconstruction. Contrast material: ISOVUE 370; Contrast volume: 100 ml; Contrast route: INTRAVENOUS (IV); COMPARISON: No relevant prior studies available. FINDINGS: Lungs: Prominence of the peripheral bronchovascular markings are identified suggestive of interstitial lung disease. Liver: Liver is moderately fatty but not enlarged. Subtle areas of diminished density are seen in the dome of the liver measuring up to 11 mm on image 201/26 through 28. Questionable lesion is seen measuring 15 x 8 mm in the right lobe of the liver on image 201/43. Gallbladder and bile ducts: Normal. No calcified stones. No ductal dilation. Pancreas: Normal. No ductal dilation. Spleen: Normal. No splenomegaly. Adrenals: Normal. No mass. Kidneys and ureters: There is a 17 mm right renal cyst. Stomach and bowel: There is bowel wall thickening noted involving distal half of the stomach extending almost to the duodenal bulb. This measures up to 11 mm. Is the wall may be also edematous. This may be a neoplastic process versus sequelae of an infectious or inflammatory process. There are small lymph nodes seen surrounding this area specially on image 201/66 through 70. Appendix: The the appendix is unremarkable. Intraperitoneal space: Unremarkable. No free air. No significant fluid collection. Vasculature: Unremarkable. No abdominal aortic aneurysm. Vascular calcifications. Lymph nodes: There may be an enlarged right hilar lymph node incompletely visualized at 11 x 17 mm. Bladder: Unremarkable as visualized. Reproductive: Unremarkable as visualized. Bones/joints: Unremarkable. No acute fracture. Soft tissues: Unremarkable. IMPRESSION: 1. Bowel wall thickening seen involving the distal aspect of the stomach which is also edematous with mild surrounding inflammatory changes. Numerous subcentimeter lymph nodes surrounding the more inferior aspect of this area. These lymph nodes could be due to infectious, inflammatory or neoplastic etiology. 2. Suspect lesions noted within the liver. 3. Consider direct visualization the stomach as well as possible MRI of the liver. 4. Bosniak class 1 renal cyst. No further workup recommended. Electronically signed by: Jamie Marina On 01/24/2020 13:56:19 PM
[2020-01-24 14:06] LABS: CALCIUM LEVEL 7.5 MG/DL (8.8-10.2); CREATININE FOR GFR 1.15 MG/DL (0.55-1.30); GLOMERULAR FILTRATION RATE 49.5 (>39)
[2020-01-24] MEDS ORDERED: PANTOPRAZOLE SODIUM 40 MG in D5W MINI-BAG PLUS 50 ML IV SCH (15:25)
--- NOTE | 2020-01-24 16:00 | HPEPDOC ---
[facility] Medical History & Physical Date of Admission Jan 24, 2020 Date of Service: Jan 24, 2020 History and Physical CHIEF COMPLAINT: vomiting blood and blood per rectum HISTORY OF PRESENT ILLNESS: 69 yo F with a hx of CAD (s/p stenting x 5), DM2, HTN, and metastatic breast cancer, presenting to ED c/o coffee ground emesis which started 2 days ago, and progressed to melanotic stool. She further endorses midsternal and mid-epigastric pain this morning. She was concerned about her chest pain, and took 2 PO NG tabs, and subsequently suffered a pre- syncopal episode, after feeling week in the legs. On arrival to the ED she was hypotensive, but improved with IV fluids. Hemodynamically stable with a BP of 120s/80s, HR 80s. CBC showing a Hgb 4.7. Trop <0.02. No EKG changes. BG 200. CT abdomen showing bowel wall thickening in distal stomach with numerous sub 1cm LNs inferior to area, along with suspect liver lesions. Admitted to PCU for management of acute GI bleeding. PAST MEDICAL HISTORY: HTN DM2 CAD Upper GI bleeding PAST SURGICAL HISTORY: SOCIAL HISTORY: former smoker, quite 10 years ago former etoh use FAMILY HISTORY: denies family hx of cancer no hx of DM2 ALLERGIES: Please see below. REVIEW OF SYSTEMS: CONSTITUTIONAL: denies fevers, chills, malaise HEENT: denies blurred vision. CARDIOVASCULAR: reports chest pain earlier, now resolved. RESPIRATORY: denies wheezing, cough. GASTROINTESTINAL: reports coffee ground emesis, melana, mid epigastric abdominal pain. GENITOURINARY: denies dysuria, hematuria. SKIN: denies ulcers. MUSCULOSKELETAL: denies joint pain . NEUROLOGICAL: denies weakness, numbness, seizures. HEMATOLOGIC/LYMPHATIC: denies easy bruising HOME MEDICATIONS: Please see below. PHYSICAL EXAMINATION: VITAL SIGNS: GENERAL APPEARANCE: active, comfortable in bed HEENT: PERRLA, EOMI. CARDIOVASCULAR: RRR, normal S1, S2. LUNGS: CTAB. ABDOMEN: soft, non tender. MUSCULOSKELETAL: normal ROM, no joint deformity. EXTREMITIES: pulses 2+, no edema. NEUROLOGICAL: no focal neuro deficits. PSYCHIATRIC: calm, cooperative. LABORATORY DATA: See below. IMAGING: IMPRESSION: 1. Bowel wall thickening seen involving the distal aspect of the stomach which is also edematous with mild surrounding inflammatory changes. Numerous subcentimeter lymph nodes surrounding the more inferior aspect of this area. These lymph nodes could be due to infectious, inflammatory or neoplastic etiology. 2. Suspect lesions noted within the liver. 3. Consider direct visualization the stomach as well as possible MRI of the liver. 4. Bosniak class 1 renal cyst. No further workup recommended. MICROBIOLOGY: Please see below. ASSESSMENT: 69 yo F with a hx of HTN, DM2, CAD s/p stenting, presenting to ED with a 2 day history of coffee ground emesis, progressing to melena. She further endorsed midesternal chest pain with epigastric pain, for which she took 2 tablets of PO NG, and nearly fainted. She was hypotensive in the ED with a low Hgb, negative troponin and no ischemic changes on EKG. Admitted for management of acute upper GIB. . PLAN: 1. acute upper GI bleed - suspect bleeding gastric ulcer vs metastatic disease from lung primary - Hgb 4.7 - transfuse 2 units pRBC - monitor H/H q6h - strict NPO - pantoprazole IV drip - surgery consult for urgent EGD if hemodynamically unstable - GIB likely due to metastatic disease with invasion into gastric mucosa, will review additional records in am 2. Chest pain - initial trop < 0.02, trend - no ischemic EKG changes, trend EKG 3. CAD - c/w ASA/statin 4. DM2 - check a1c - hold home meds: metformin, glipizide - ISS, hypoglycemic precautions - accucheks 5. HTN - BP stable, hold home meds given hypotension on arrival/NPO status - home med: lisinopril 10 mg 6. Metastatic breast ca - suspect patient has a different EMR record, will speak to records in am - follows at the [facility] with Dr. Albert DVT ppx: avoid chemoppx. TEDs, SCDs. Dispo: pending medical clearance, suspect can return home Vital Signs Vital Signs Date Time Temp Pulse Resp B/P (MAP) Pulse Ox O2 Delivery O2 Flow Rate FiO2 01/24/20 15:30 93 16 99 Room Air 01/24/20 14:57 98.1 120/57 (78) Laboratory Data Labs 24H Laboratory Tests 2 01/24/20 12:41: Immature Granulocyte % (Auto) 0.9, Neutrophils (%) (Auto) 75.8H, Lymphocytes (%) (Auto) 18.0L, Monocytes (%) (Auto) 4.9, Eosinophils (%) (Auto) 0.3, Basophils (%) (Auto) 0.1, Neutrophils # (Auto) 7.1, Lymphocytes # (Auto) 1.7, Monocytes # (Auto) 0.5, Eosinophils # (Auto) 0.0, Basophils # (Auto) 0.0, Nucleated Red Blood Cells % (auto) 0.0, Prothrombin Time 13.2, Prothromb Time International Ratio 0.98, Activated Partial Thromboplast Time 26.2, Anion Gap 8, Glomerular Filtration Rate 49.5, Calcium Level 7.5L, Total Bilirubin 0.3, Direct Bilirubin < 0.1, Aspartate Amino Transf (AST/SGOT) 18, Alanine Aminotransferase (ALT/SGPT) 18, Alkaline Phosphatase 77, Total Protein 7.4, Albumin 3.6, Albumin/Globulin Ratio 0.9L 01/24/20 12:42: POC Troponin I (Misc) 0.01 01/24/20 12:43: POC Glucose (Misc Panel) 205H, POC Sodium (Misc Panel) 134L, POC Potassium (Misc Panel) 4.2, POC Chloride (Misc Panel) 96L, POC Total CO2 (Misc Panel) 22.0L, POC Blood Urea Nitrogen (Misc Panel 43H, POC Ionized Calcium (Misc Panel) 4.8, POC Creatinine (Misc Panel) 0.9, POC Hematocrit (Misc Panel) 17.0L CBC/BMP Laboratory Tests 01/24/20 12:41 Home Medications Scheduled Atorvastatin Calcium (Atorvastatin Calcium) 20 Mg Tablet, 20 MG PO DAILY Duloxetine Hcl (Duloxetine HCl) 60 Mg Capsule.dr, 60 MG PO BID Gabapentin (Gabapentin) 300 Mg Capsule, 900 MG PO BID Glipizide (Glipizide) 10 Mg Tablet, 10 MG PO DAILY Lisinopril (Lisinopril) 10 Mg Tablet, 10 MG PO DAILY Metformin HCl (Metformin HCl) 1,000 Mg Tablet, 1,000 MG PO BID Scheduled PRN Nitroglycerin (Nitroglycerin) 0.4 Mg Tab.subl, 0.4 MG SL ASDIRECTED PRN for CHEST PAIN 1st sign of attack; may repeat every 5 mins; if pain persists after 3 in 15 min, medical attention is recommended Allergies Coded Allergies: Penicillins (Verified Allergy, Unknown, 01/24/20) A-FIB/CHADSVASC A-FIB History Current/History of A-Fib/PAF?: No Current PO Anticoag Therapy: No EMMETT MARTIN MD Jan 24, 2020 16:00
[2020-01-24] MEDS: D5W/0.9% SODIUM CHLORIDE 1,000 ML IV SCH (18:36)
[2020-01-25] VITALS (8 sets, daily range): BP systolic 103–160; BP diastolic 55–73
[2020-01-25 00:40] LABS: HEMATOCRIT 23.8 % (36.0-47.0)
[2020-01-25 00:41] LABS: HEMOGLOBIN 7.8 g/dl (12.0-15.5)
[2020-01-25] MEDS ORDERED: MORPHINE 2 MG/ML 1ML VIAL (J2270) IV ONE (01:00)
[2020-01-25] MEDS: D5W/0.9% SODIUM CHLORIDE 1,000 ML IV SCH ×3 (01:45→21:45)
[2020-01-25] MEDS: PANTOPRAZOLE SODIUM 40 MG in D5W 50 ML IV SCH ×4 (03:48→19:15)
[2020-01-25 05:49] LABS: BASO % 0.5 % (0.0-1.0); EOS # 0.1 10^3/uL (0.0-0.5); EOS % 1.3 % (0.0-3.0); HEMATOCRIT 23.8 % (36.0-47.0); HEMOGLOBIN 7.7 g/dl (12.0-15.5); LYMPH # 1.5 10^3/uL (1.5-5.0); MEAN CORPUSCULAR HEMOGLOBIN 28.1 pg (27.0-33.0); MEAN CORPUSCULAR HGB CONC 32.4 g/dl (32.0-36.5); MEAN CORPUSCULAR VOLUME 86.9 fl (80.0-96.0); MONO # 0.5 10^3/uL (0.0-0.8); MONO % 8.3 % (0.0-5.0); NEUTROPHILS % 64.3 % (36.0-66.0); PLATELET COUNT, AUTOMATED 178 10^3/uL (150-450); RED BLOOD COUNT 2.74 10^6/uL (4.00-5.40); WHITE BLOOD COUNT 6.2 10^3/uL (4.0-10.0)
[2020-01-25 06:30] LABS: HEMOGLOBIN A1c 6.4 %
[2020-01-25] MEDS ORDERED: GLUCOSE 4GM CHEW TABLET PO PRN (07:15)
[2020-01-25] MEDS ORDERED: GLUCAGON INJ 1MG VIAL SC PRN (07:15)
[2020-01-25] MEDS ORDERED: DEXTROSE 50% 50 ML SYRINGE IV PRN (07:15)
[2020-01-25 07:26] LABS: ALBUMIN 3.2 GM/DL (3.2-5.2); ALT/SGPT 20 U/L (12-78); AMYLASE 43 U/L (25-115); BILIRUBIN,TOTAL 0.5 MG/DL (0.2-1.0); BLOOD UREA NITROGEN 20 MG/DL (7-18); CALCIUM LEVEL 8.5 MG/DL (8.8-10.2); CARBON DIOXIDE LEVEL 28 MEQ/L (21-32); CHLORIDE LEVEL 107 MEQ/L (98-107); CHOLESTEROL LEVEL 114 MG/DL (<200); CREATININE FOR GFR 0.87 MG/DL (0.55-1.30); GLOMERULAR FILTRATION RATE > 60.0 (>39); GLUCOSE, FASTING 160 MG/DL (70-100); HDL CHOLESTEROL 41 MG/DL (>40); LDL CHOLESTEROL 10 MG/DL (<100); LIPASE 134 U/L (73-393); MAGNESIUM LEVEL 2.1 MG/DL (1.8-2.4); NON-HDL-C 73 MG/DL; POTASSIUM SERUM 3.9 MEQ/L (3.5-5.1); SODIUM LEVEL 138 MEQ/L (136-145); TOTAL PROTEIN 6.8 GM/DL (6.4-8.2); TRIGLYCERIDES LEVEL 313 MG/DL (<150); TROPONIN I 0.08 NG/ML (< 0.10)
[2020-01-25] MEDS: HumaLOG INSULIN (NovoLOG) PER UNIT SC SCH ×3 (07:30→17:41)
[2020-01-25] MEDS ORDERED: FLUBLOK(EGG FREE)(QUAD)INFLUENZA VACC 0.5ML SYRINGE 18YRS & OLDER IM ONE (09:00)
[2020-01-25] MEDS ORDERED: PREVNAR 13 VACCINE SYRINGE IM ONE (09:00)
--- NOTE | 2020-01-25 11:23 | IPNPDOC ---
Date Seen The patient was seen on 01/25/20. Progress Note SUBJECTIVE: patient was seen and examined this morning. No further episodes of hematemesis, melena. States that she is hungry. Feels fatigued. Denies chest pain, n/v/d. No fevers or chills. OBJECTIVE PHYSICAL EXAMINATION: VITAL SIGNS: Please see below. GENERAL APPEARANCE: active, comfortable in bed HEENT: PERRLA, EOMI. CARDIOVASCULAR: RRR, normal S1, S2. LUNGS: CTAB. ABDOMEN: soft, non tender. MUSCULOSKELETAL: normal ROM, no joint deformity. EXTREMITIES: pulses 2+, no edema. NEUROLOGICAL: no focal neuro deficits. PSYCHIATRIC: calm, cooperative. LABORATORY DATA, IMAGING STUDIES, MICROBIOLOGY: Please see below. DVT prophylaxis ordered?: NABILA GRANADOS, holding lovenox in light of GIB. ASSESSMENT: 69 yo F with a hx of HTN, DM2, CAD s/p stenting, metastatic breast ca, presenting to ED with a 2 day history of coffee ground emesis, progressing to melena. She further endorsed midesternal chest pain with epigastric pain, for which she took 2 tablets of PO NG, and nearly fainted. She was hypotensive in the ED with a low Hgb, negative troponin and no ischemic changes on EKG. Admitted for management of acute upper GIB. PLAN: 1. acute upper GI bleed - suspect bleeding gastric ulcer vs metastatic disease from lung primary - Hgb 4.7 --> 7.7 after 2 units - transfuse 3rd unit given hx of CAD. - monitor H/H q6h - start clear liquid diet - pantoprazole IV drip - general surgery consult for possible EGD 2. Chest pain - initial trop < 0.02, trend - no ischemic EKG changes, trend EKG 3. CAD - c/w ASA/statin 4. DM2 - check a1c - 6.4 - hold home meds: metformin, glipizide - ISS, hypoglycemic precautions - accucheks 5. HTN - BP stable, hold home meds given hypotension on arrival/NPO status - home med: lisinopril 10 mg 6. Metastatic breast ca (L) - was diagnosed in 2010, s/p lumpectomy, sentinel node bx followed by adjuvant radiation - was treated with letrozole, examestane in 2010, followed by tamoxifen until 02/2017 - she was diagnowed with metastatic reccurrence in Jun 2019 to lungs, liver and skeleton. Biopsy of liver lesions, was c/w breast primary ER/NC, HER2 negative - follows at the [facility] with Dr. Albert, consult placed. 7. Elevated TSH - check FT3 DVT ppx: avoid chemoppx. TEDs, SCDs. Dispo: pending medical clearance, suspect can return home VS, I&O, 24H, Fishbone Vital Signs/I&O Vital Signs Date Time Temp Pulse Resp B/P (MAP) Pulse Ox O2 Delivery O2 Flow Rate FiO2 01/25/20 08:00 97.7 84 17 104/68 (80) 99 Room Air I&O- Last 24 Hours up to 6 AM 01/25/20 05:59 Intake Total 730 ml Output Total 3500 ml Balance -2770 ml Laboratory Data 24H LABS Laboratory Tests 2 01/24/20 12:41: Immature Granulocyte % (Auto) 0.9, Neutrophils (%) (Auto) 75.8H, Lymphocytes (%) (Auto) 18.0L, Monocytes (%) (Auto) 4.9, Eosinophils (%) (Auto) 0.3, Basophils (%) (Auto) 0.1, Neutrophils # (Auto) 7.1, Lymphocytes # (Auto) 1.7, Monocytes # (Auto) 0.5, Eosinophils # (Auto) 0.0, Basophils # (Auto) 0.0, Nucleated Red Blood Cells % (auto) 0.0, Prothrombin Time 13.2, Prothromb Time International Ratio 0.98, Activated Partial Thromboplast Time 26.2, Anion Gap 8, Glomerular Filtration Rate 49.5, Calcium Level 7.5L, Total Bilirubin 0.3, Direct Bilirubin < 0.1, Aspartate Amino Transf (AST/SGOT) 18, Alanine Aminotransferase (ALT/SGPT) 18, Alkaline Phosphatase 77, Total Protein 7.4, Albumin 3.6, Albumin/Globulin Ratio 0.9L 01/24/20 12:42: POC Troponin I (Misc) 0.01 01/24/20 12:43: POC Glucose (Misc Panel) 205H, POC Sodium (Misc Panel) 134L, POC Potassium (Misc Panel) 4.2, POC Chloride (Misc Panel) 96L, POC Total CO2 (Misc Panel) 22.0L, POC Blood Urea Nitrogen (Misc Panel 43H, POC Ionized Calcium (Misc Panel) 4.8, POC Creatinine (Misc Panel) 0.9, POC Hematocrit (Misc Panel) 17.0L 01/25/20 05:20: Immature Granulocyte % (Auto) 0.6, Neutrophils (%) (Auto) 64.3, Lymphocytes (%) (Auto) 25.0, Monocytes (%) (Auto) 8.3H, Eosinophils (%) (Auto) 1.3, Basophils (%) (Auto) 0.5, Neutrophils # (Auto) 4.0, Lymphocytes # (Auto) 1.5, Monocytes # (Auto) 0.5, Eosinophils # (Auto) 0.1, Basophils # (Auto) 0.0, Nucleated Red Blood Cells % (auto) 0.3H, Anion Gap 3L, Glomerular Filtration Rate > 60.0, Calcium Level 8.5L, Total Bilirubin 0.5#, Aspartate Amino Transf (AST/SGOT) 20, Alanine Aminotransferase (ALT/SGPT) 20, Alkaline Phosphatase 73, Total Protein 6.8, Albumin 3.2, Albumin/Globulin Ratio 0.9L, Estimated Mean Plasma Glucose 137H, Hemoglobin A1c 6.4, Lactic Acid Level 1.5, Magnesium Level 2.1, Ammonia 21, Troponin I 0.08, Triglycerides Level 313H, Total Cholesterol 114, LDL Cholesterol 10, Non-HDL Cholesterol (LDL + VLDL) 73, Total HDL Cholesterol 41, Cholesterol/HDL Ratio 2.780, Amylase Level 43, Lipase 134, Thyroid Stimulating Hormone (TSH) 4.180H 01/25/20 08:02: Bedside Glucose (Misc Panel) 179H CBC/BMP Laboratory Tests 01/24/20 12:41 01/25/20 00:09 01/25/20 05:20 EMMETT MARTIN MD Jan 25, 2020 11:23
[2020-01-25 11:33] LABS: HEPATITIS B SURFACE ANTIGEN NEGATIVE (NEGATIVE)
[2020-01-25 11:47] LABS: FREE T4 0.83 NG/DL (0.76-1.46); TROPONIN I 0.07 NG/ML (< 0.10)
[2020-01-25 12:00] LABS: HEPATITIS B CORE ANTIBODY IGM NEGATIVE (NEGATIVE); HEPATITIS C VIRUS ABY INDEX 0.3 INDEX (<0.8)
[2020-01-25 12:03] LABS: HEPATITIS A ANTIBODY IGM NEGATIVE (NEGATIVE)
[2020-01-25 12:15] LABS: CA19-9 TUMOR MARKER,CARBOHYDRA 8.3 U/ML (<35.0)
[2020-01-25 17:16] LABS: HEMATOCRIT 31.1 % (36.0-47.0); HEMOGLOBIN 10.1 g/dl (12.0-15.5)
[2020-01-25] MEDS ORDERED: HumaLOG INSULIN (NovoLOG) PER UNIT SC SCH (21:00)
[2020-01-25] MEDS ORDERED: ACETAMINOPHEN TAB 650MG DOSE (2X325MG) PO PRN (23:45)
[2020-01-26] VITALS (7 sets, daily range): BP systolic 147–179; BP diastolic 68–97
[2020-01-26] MEDS: PANTOPRAZOLE SODIUM 40 MG in D5W 50 ML IV SCH ×3 (00:15→10:36)
[2020-01-26] MEDS ORDERED: MORPHINE 2 MG/ML 1ML VIAL (J2270) IV ONE (04:00)
[2020-01-26 06:20] LABS: BASO % 0.1 % (0.0-1.0); EOS # 0.1 10^3/uL (0.0-0.5); EOS % 1.4 % (0.0-3.0); HEMATOCRIT 30.4 % (36.0-47.0); HEMOGLOBIN 10.2 g/dl (12.0-15.5); LYMPH # 1.2 10^3/uL (1.5-5.0); LYMPH % 17.3 % (24.0-44.0); MEAN CORPUSCULAR HEMOGLOBIN 28.9 pg (27.0-33.0); MEAN CORPUSCULAR HGB CONC 33.6 g/dl (32.0-36.5); MEAN CORPUSCULAR VOLUME 86.1 fl (80.0-96.0); MONO # 0.5 10^3/uL (0.0-0.8); MONO % 7.1 % (0.0-5.0); NEUTROPHILS # 5.3 10^3/uL (1.5-8.5); NEUTROPHILS % 73.3 % (36.0-66.0); PLATELET COUNT, AUTOMATED 223 10^3/uL (150-450); RED BLOOD COUNT 3.53 10^6/uL (4.00-5.40); WHITE BLOOD COUNT 7.2 10^3/uL (4.0-10.0)
[2020-01-26 06:53] LABS: ALBUMIN 3.7 GM/DL (3.2-5.2); ALT/SGPT 21 U/L (12-78); BILIRUBIN,TOTAL 0.5 MG/DL (0.2-1.0); BLOOD UREA NITROGEN 8 MG/DL (7-18); CARBON DIOXIDE LEVEL 24 MEQ/L (21-32); CHLORIDE LEVEL 111 MEQ/L (98-107); CREATININE FOR GFR 0.76 MG/DL (0.55-1.30); GLOMERULAR FILTRATION RATE > 60.0 (>39); GLUCOSE, FASTING 175 MG/DL (70-100); MAGNESIUM LEVEL 1.8 MG/DL (1.8-2.4); SODIUM LEVEL 140 MEQ/L (136-145); TOTAL PROTEIN 7.7 GM/DL (6.4-8.2)
[2020-01-26] MEDS: HumaLOG INSULIN (NovoLOG) PER UNIT SC SCH ×2 (07:30→12:43)
--- NOTE | 2020-01-26 09:33 | IPNPDOC ---
Text Note Date of Service The patient was seen on 01/26/20. NOTE Patient known to me from previous clinic visits. i did an upper endoscopy on her back in 2012. She has a known history of gastric ulcers, suspected Martinez's esophagus, has been noncompliant with her medications. I have not seen her in a while. Apparently recently diagnosed with metastasis from her previous breast cancer and is undergoing chemotherapy. Has known metastasis to the liver and lymph nodes but seems to have responded to chemotherapy. She denies taking any NSAIDs. She is currently admitted for severe post hermorrhagic anemia following melanotic stools and also complaining of mild burning epigastric pain. I was asked to see her for a diagnostic possibly therapeutic upper endoscopy. On exam: fairly comfortable in appearance. Awake, alert, oriented abdomen is mildly obese, soft, minimally tender on palpation at epigastric area without rebound or guarding Impression: Upper GI bleed probably from PUD continue with PPI for endoscopy today. VS,Fishbone, I+O VS, Fishbone, I+O Laboratory Tests 01/25/20 16:43 01/26/20 05:51 01/26/20 05:52 Vital Signs Date Time Temp Pulse Resp B/P (MAP) Pulse Ox O2 Delivery O2 Flow Rate FiO2 01/26/20 08:00 97.0 87 20 172/70 (104) 98 Room Air I&O- Last 24 Hours up to 6 AM 01/26/20 06:00 Intake Total 1720 ml Output Total 700 ml Balance 1020 ml SERENA RONDON MD Jan 26, 2020 09:33
--- NOTE | 2020-01-26 10:26 | CR.PDOC ---
General Date of Consultation: Jan 26, 2020 Referring Provider: EMMETT MARTIN MD Primary Care Physician: KARUNA MEIER DO Attending Physician: EMMETT MARTIN MD Consultation REASON FOR CONSULTATION/CHIEF COMPLAINT: Metastatic breast cancer HISTORY OF PRESENT ILLNESS: Mrs. Null is a 69-year-old with metastatic breast cancer with known lung, liver and skeletal metastases, currently on letrozole. Presented to the ER with coffee ground emesis and melanotic stools. Hemoglobin was 4.9, G/DL so far transfused with 3 units packed red cells. Today's hemoglobin has come up to 10.2 G/DL. She is awaiting an upper endoscopy under Dr. Buchanan. She is known to have gastric ulcers as per Dr. Buchanan's notes. ALLERGIES: Please see below. HOME MEDICATIONS: Please see below. Past Medical History: Diabetes mellitus. Hypertension. Coronary artery disease. Family History: No history of cancer. Social History: Former smoker, having smoked up to 1994. Does not drink alcohol. . No children. REVIEW OF SYSTEMS: General: Reports: Fatigue, Normal Appetite; Denies: Chills, Night Sweats, Malaise Constitutional: Reports: Normal appetite, Fatigue; Denies: Chills, Fever, Malaise, Night Sweats, Weakness, Weight Loss, Lethargy Eyes: Denies: Pain, Vision change, Conjunctivae inflammation, Eyelid inflammation, Redness HEENT: Denies: Head Aches, Ear Pain, Dysphagia, Sinus Congestion, Post Nasal Drip, Sore Throat, Epistaxis Skin: Denies: Rash, Lesions, Jaundice, Bruising Pulmonary: Denies: Dyspnea, Cough, Pleuritic Chest Pain Cardiovascular: Denies: Palpitations, Orthopnea, Paroxysmal Noc. Dyspnea, Edema, Lt Headedness Reports: Chest pains. Gastrointestinal: Reports: Abdominal Pain, Diarrhea, Melena, Vomiting, coffee ground emesis; Denies: Nausea, Constipation, Hematochezia Genitourinary: Denies: Dysuria, Frequency, Incontinence, Hematuria, Retention Hematologic: Denies: Bruising, Bleeding Excessively, Petecchia, Purpura, Enlarged Lymph Nodes Endocrine: Denies: Polydipsia, Polyphagia, Polyuria, Heat Intolerance, Cold Intolerance Musculoskeletal: Reports: Neck pain (occasional.); Denies: Shoulder pain, Arm pain, Back pain, Hand pain, Leg pain, Foot pain, Joint pain, Muscle pain, Spasms, Gout, Joint sweling, Muscle stiffness, Midthoracic pain Neurological: Denies: Weakness, Numbness, Incoordination, Change in Speech, Confusion, Seizures Psych: Reports: Mood Normal; Denies: Anxiety, Depression, Memory Issues, Thoughts of Self Harm, Anger, Thoughts of harming Other PHYSICAL EXAMINATION: VITAL SIGNS: Please see below. General Exam: Positive: Alert, Cooperative, No Acute Distress, seen ambulating around room, not in distress. Eye Exam: Positive: PERRLA, Conjunctiva & lids normal, EOMI; Negative: Sclera icteric, Ptosis ENT EXAM: Positive: Atraumatic, Mucous membr. moist/pink, Pharynx Normal, Tongue Midline, Nares Patent; Negative: Pharyngeal Edema Neck Exam: Positive: Supple; Negative: JVD, Thyromegaly, Lymphadenopathy Chest Exam: Positive: Clear to auscultation, Normal air movement; Negative: Rales, Rhonchi, Wheezing Heart Exam: Positive: Rate Normal, Regular Rhythm, Normal S1, Normal S2; Negative: Gallops, Murmurs, Rubs Abdomen Exam: Positive: Normal bowel sounds, Soft; Negative: Tenderness, Hepatospenomegaly, Mass, Hernia Extremity Exam: Positive: Normal pulses; Negative: Clubbing, Cyanosis, Edema, Tenderness, Swelling Skin Exam: Positive: Nl turgor and temperature; Negative: Rash, Breakdown, Lesion, Pruritus Neuro Exam: Positive: Normal Gait, Normal Speech, Normal Tone Psych Exam: Positive: Mental status NL, Mood NL, Oriented x 3; Negative: Anxiety LABORATORY DATA: Please see below. ASSESSMENT/PLAN: 69-year-old with metastatic breast cancer on letrozole. Most recent PET CT scan 01/01/2020 showed improvement in hepatic, lung and omero disease, but some disease progression in skeletal lesions. Currently admitted with gastrointestinal bleeding. For upper endoscopy today under Dr. Buchanan. Continue monitoring H/H. Transfusion support as needed. We will arrange a follow-up appointment with me once patient is discharged. Thank you for asking us to see Mrs. Null while in hospital. Vital Signs/I&O Vital Signs Date Time Temp Pulse Resp B/P (MAP) Pulse Ox O2 Delivery O2 Flow Rate FiO2 01/26/20 08:00 97.0 87 20 172/70 (104) 98 Room Air I&O- Last 24 Hours up to 6 AM 01/26/20 06:00 Intake Total 1720 ml Output Total 700 ml Balance 1020 ml Laboratory Data Labs 24H Laboratory Tests 2 01/25/20 11:49: Lab Scanned Report Miscellaneous Lab 01/25/20 12:14: Bedside Glucose (Misc Panel) 130H 01/25/20 17:16: Bedside Glucose (Misc Panel) 163H 01/26/20 05:51: Anion Gap 5L, Glomerular Filtration Rate > 60.0, Calcium Level 9.0, Magnesium Level 1.8, Total Bilirubin 0.5, Aspartate Amino Transf (AST/SGOT) 20, Alanine Aminotransferase (ALT/SGPT) 21, Alkaline Phosphatase 86, Total Protein 7.7, [place] min 3.7, Albumin/Globulin Ratio 0.9L 01/26/20 05:52: Immature Granulocyte % (Auto) 0.8, Neutrophils (%) (Auto) 73.3H, Lymphocytes (%) (Auto) 17.3L, Monocytes (%) (Auto) 7.1H, Eosinophils (%) (Auto) 1.4, Basophils (%) (Auto) 0.1, Neutrophils # (Auto) 5.3, Lymphocytes # (Auto) 1.2L, Monocytes # (Auto) 0.5, Eosinophils # (Auto) 0.1, Basophils # (Auto) 0.0, Nucleated Red Blood Cells % (auto) 0.0 01/26/20 09:00: CBC/BMP Laboratory Tests 01/25/20 16:43 01/26/20 05:51 01/26/20 05:52 Allergies Coded Allergies: Penicillins (Verified Allergy, Unknown, 01/24/20) Home Medications Scheduled Atorvastatin Calcium (Atorvastatin Calcium) 20 Mg Tablet, 20 MG PO DAILY, (Reported) Duloxetine Hcl (Duloxetine HCl) 60 Mg Capsule.dr, 60 MG PO BID, (Reported) Gabapentin (Gabapentin) 300 Mg Capsule, 900 MG PO BID, (Reported) Glipizide (Glipizide) 10 Mg Tablet, 10 MG PO DAILY, (Reported) Lisinopril (Lisinopril) 10 Mg Tablet, 10 MG PO DAILY, (Reported) Metformin HCl (Metformin HCl) 1,000 Mg Tablet, 1,000 MG PO BID, (Reported) Scheduled PRN Nitroglycerin (Nitroglycerin) 0.4 Mg Tab.subl, 0.4 MG SL ASDIRECTED PRN for CHEST PAIN, (Reported) 1st sign of attack; may repeat every 5 mins; if pain persists after 3 in 15 min, medical attention is recommended MILVIA NARAYAN MD Jan 26, 2020 10:26
--- NOTE | 2020-01-26 11:38 | ECGEPIP ---
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
[2020-01-26] MEDS ORDERED: **hydrALAZINE HCL** 25 MG TAB PO ONE (13:00)
[2020-01-26] MEDS ORDERED: propofoL 200 MG/20 ML VIAL As Ordered ONE (14:12)
[2020-01-26] MEDS ORDERED: fentaNYL 100 MCG/2 ML INJECTION (J3010) As Ordered ONE (14:12)
[2020-01-26] MEDS ORDERED: LIDOCAINE 2% 100MG/5ML SDV (FOR ANES.) As Ordered ONE (14:12)
[2020-01-26] MEDS: D5W/0.9% SODIUM CHLORIDE 1,000 ML IV SCH (15:35)
[2020-01-26] MEDS ORDERED: ONDANSETRON 4MG/2ML VIAL IV PRN (16:00)
[2020-01-26] MEDS ORDERED: LR 1,000 ML IV SCH (16:00)
[2020-01-26] MEDS ORDERED: SUCR1TA PO (16:14)
[2020-01-26] MEDS ORDERED: PANT40TA29 PO ×2 (16:14→16:26)
[2020-01-26] MEDS ORDERED: LISI-538 PO (16:28)
[2020-01-26] MEDS ORDERED: AMLO1TAB24 PO (16:31)
--- NOTE | 2020-01-26 16:41 | ECGEPIP ---
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
[2020-01-26] MEDS ORDERED: lisinopriL 10 MG TAB PO ONE (17:00)
--- NOTE | 2020-01-26 17:25 | DS.PDOC ---
Discharge Summary General Date of Admission Jan 24, 2020 at 15:25 Date of Discharge 01/26/20 Attending Physician: EMMETT MARTIN MD Specialist/Consultants Involve: SERENA BUCHANAN MD Specialist/Consultants Involve Dr. Albert Discharge Summary PROCEDURES PERFORMED DURING STAY: EGD on 01/27/[address] Buchanan - gastric ulcer near pylorus, non bleeding. Bipsy taken. ADMITTING DIAGNOSES: acute anemia due to upper gi bleed CAD DM2 HTN Metastatic breast ca DISCHARGE DIAGNOSES: acute anemia due to upper gi bleed gastric ulcer CAD DM2 HTN Metastatic breast ca COMPLICATIONS/CHIEF COMPLAINT: Gi Bleed. HISTORY OF PRESENT ILLNESS: 69 yo F with a hx of CAD (s/p stenting x 5), DM2, HTN, and metastatic breast cancer, presenting to ED c/o coffee ground emesis which started 2 days ago, and progressed to melanotic stool. She further endorses midsternal and mid-epigastric pain this morning. She was concerned about her chest pain, and took 2 PO NG tabs, and subsequently suffered a pre- syncopal episode, after feeling week in the legs. On arrival to the ED she was hypotensive, but improved with IV fluids. Hemodynamically stable with a BP of 120s/80s, HR 80s. CBC showing a Hgb 4.7. Trop <0.02. No EKG changes. BG 200. CT abdomen showing bowel wall thickening in distal stomach with numerous sub 1cm LNs inferior to area, along with suspect liver lesions. Admitted to PCU for management of acute GI bleeding. HOSPITAL COURSE: 1. acute upper GI bleed - suspect bleeding gastric ulcer vs metastatic disease from lung primary - Hgb 4.7 --> 10.2, stable (after 3 units prbc) - transfuse 3rd unit given hx of CAD. - pantoprazole IV drip - General Surgery - Dr. Buchanan consulted - EGD performed on 01/26/20 - found non bleeding gastric ulcer near pylorus - recs for sucralfate 1 gm BID for 1 month, pantoprazole 40 mg daily indefinitely - biopsies taken 2. Chest pain - initial trop < 0.02 x 2 - no ischemic EKG changes 3. CAD - c/w ASA/statin 4. DM2 - check a1c - 6.4 - hold home meds: metformin, glipizide - ISS, hypoglycemic precautions - accucheks 5. HTN - BP elevated on admission, meds were held due to hypotension in ED - 160/75 on DC, given 10 mg lisinopril prior to DC - increased dose of lisinopril to 20 mg daily - added 5 mg daily - patient to follow up with PCP in 3 days for BP check - to hold meds if dizzy/lightheaded 6. Metastatic breast ca (L) - was diagnosed in 2010, s/p lumpectomy, sentinel node bx followed by adjuvant radiation - was treated with letrozole, examestane in 2010, followed by tamoxifen until 02/2017 - she was diagnowed with metastatic reccurrence in Jun 2019 to lungs, liver and skeleton. Biopsy of liver lesions, was c/w breast primary ER/HI, HER2 negative - follows at the [facility] with Dr. Albert, consult placed. Will f/u outpatient. 7. Elevated TSH - check FT3 - wnl DVT ppx: avoid chemoppx. TEDs, SCDs. Dispo: home DISCHARGE MEDICATIONS: Please see below. ALLERGIES: Please see below. PHYSICAL EXAMINATION ON DISCHARGE: VITAL SIGNS: Please see below. GENERAL APPEARANCE: active, comfortable in bed HEENT: PERRLA, EOMI. CARDIOVASCULAR: RRR, normal S1, S2. LUNGS: CTAB. ABDOMEN: soft, non tender. MUSCULOSKELETAL: normal ROM, no joint deformity. EXTREMITIES: pulses 2+, no edema. NEUROLOGICAL: no focal neuro deficits. PSYCHIATRIC: calm, cooperative. LABORATORY DATA: Please see below. IMAGING: CT abdomen (01/26/20) IMPRESSION: 1. Bowel wall thickening seen involving the distal aspect of the stomach which is also edematous with mild surrounding inflammatory changes. Numerous subcentimeter lymph nodes surrounding the more inferior aspect of this area. These lymph nodes could be due to infectious, inflammatory or neoplastic etiology. 2. Suspect lesions noted within the liver. 3. Consider direct visualization the stomach as well as possible MRI of the liver. 4. Bosniak class 1 renal cyst. No further workup recommended. PROGNOSIS: fair, given advanced metastatic disease ACTIVITY: [As tolerated]. DIET: full liquid diet for 4 days, resum cardiac diet after DISCHARGE PLAN: f/u with PCP in 3 days. F/u Dr. Albert at [facility] 2 weeks. Follow up with Dr. Buchanan in general surgery clinic in 2-4 weeks. DISPOSITION: DC home DISCHARGE INSTRUCTIONS: PLEASE FOLLOW UP WITH YOUR PRIMARY CARE DOCTOR WITHIN 3-5 DAYS PLEASE FOLLOW UP WITH GENERAL SURGERY - DR. BUCHANAN WITHIN 3-4 WEEKS PLEASE TAKE YOUR MEDICATIONS PRESCRIBED - YOU HAVE BEEN PRESCRIBED SUCRALFATE 1 MG TABLET - TWICE PER DAY FOR 30 DAYS, AND PANTOPRAZOLE (ACID LOWER MEDICATION) 40 MG TABLET DAILY INDEFINITELY. IF YOU DEVELOP CHEST PAIN, SHORTNESS OF BREATH, FEVERS, CHILLS, BLEEDING OR OTHERWISE WORSENING FO YOUR SYMPTOMS, PLeASE CALL 911 OR RETURN TO THE EMERGENCY DEPARTMENT. ITEMS TO FOLLOWUP ON ON OUTPATIENT: 1. Ulcer biopsy pathology report. DISCHARGE CONDITION: Stable TIME SPENT ON DISCHARGE: Greater than 30 minutes. Vital Signs/I&Os Vital Signs Date Time Temp Pulse Resp B/P (MAP) Pulse Ox O2 Delivery O2 Flow Rate FiO2 01/26/20 16:59 160/78 01/26/20 15:20 98.8 93 20 99 Room Air I&O- Last 24 Hours up to 6 AM 01/26/20 06:00 Intake Total 1720 ml Output Total 700 ml Balance 1020 ml Laboratory Data Labs 24H Laboratory Tests 2 01/26/20 05:51: Anion Gap 5L, Glomerular Filtration Rate > 60.0, Calcium Level 9.0, Magnesium Level 1.8, Total Bilirubin 0.5, Aspartate Amino Transf (AST/SGOT) 20, Alanine Aminotransferase (ALT/SGPT) 21, Alkaline Phosphatase 86, Total Protein 7.7, Albumin 3.7, Albumin/Globulin Ratio 0.9L 01/26/20 05:52: Immature Granulocyte % (Auto) 0.8, Neutrophils (%) (Auto) 73.3H, Lymphocytes (%) (Auto) 17.3L, Monocytes (%) (Auto) 7.1H, Eosinophils (%) (Auto) 1.4, Basophils (%) (Auto) 0.1, Neutrophils # (Auto) 5.3, Lymphocytes # (Auto) 1.2L, Monocytes # (Auto) 0.5, Eosinophils # (Auto) 0.1, Basophils # (Auto) 0.0, Nucleated Red Blood Cells % (auto) 0.0 01/26/20 09:00: Coronavirus (COVID-19)(PCR) NEGATIVE 01/26/20 12:10: Bedside Glucose (Misc Panel) 191H 01/26/20 14:00: Bedside Glucose (Misc Panel) 148H CBC/BMP Laboratory Tests 01/26/20 05:51 01/26/20 05:52 FSBS Laboratory Tests Test 01/26/20 12:10 01/26/20 14:00 Range/Units Bedside Glucose (Misc Panel) 191 148 83-110 MG/DL Discharge Medications Scheduled Amlodipine Besylate (Amlodipine Besylate) 5 Mg Tablet, 5 MG PO DAILY Atorvastatin Calcium (Atorvastatin Calcium) 20 Mg Tablet, 20 MG PO DAILY, (Reported) Duloxetine Hcl (Duloxetine HCl) 60 Mg Capsule.dr, 60 MG PO BID, (Reported) Gabapentin (Gabapentin) 300 Mg Capsule, 900 MG PO BID, (Reported) Glipizide (Glipizide) 10 Mg Tablet, 10 MG PO DAILY, (Reported) Lisinopril (Lisinopril) 20 Mg Tablet, 1 TAB PO DAILY Metformin HCl (Metformin HCl) 1,000 Mg Tablet, 1,000 MG PO BID, (Reported) Pantoprazole Sodium (Pantoprazole Sodium) 40 Mg Tablet.dr, 1 TAB PO DAILY Sucralfate (Sucralfate) 1 Gm Tablet, 1 GM PO BID Scheduled PRN Nitroglycerin (Nitroglycerin) 0.4 Mg Tab.subl, 0.4 MG SL ASDIRECTED PRN for CHEST PAIN, (Reported) 1st sign of attack; may repeat every 5 mins; if pain persists after 3 in 15 min, medical attention is recommended Allergies Coded Allergies: Penicillins (Verified Allergy, Unknown, 01/24/20) EMMETT MARTIN MD Jan 26, 2020 17:25
[2020-01-26] MEDS ORDERED: SUCRALFATE 1 GM TAB PO SCH (21:00)
--- NOTE | 2020-01-30 10:33 | ROOR ---
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 Inpatient 2. Inpatient Requesting Provider: Medicines: Monitored Anesthesia Care Complications: No immediate complications. Procedure: Pre-Anesthesia Assessment: - Prior to the procedure, a History and Physical was performed, and patient medications and allergies were reviewed. The patient is competent. The risks and benefits of the procedure and the sedation options and risks were discussed with the patient. All questions were answered and informed consent was obtained. Patient identification and proposed procedure were verified by the physician, the nurse and the anesthesiologist in the procedure room. Mental Status Examination: alert and oriented. Airway Examination: normal oropharyngeal airway and neck mobility. Respiratory Examination: clear to auscultation. CV Examination: normal. Prophylactic Antibiotics: The patient does not require prophylactic antibiotics. Prior Anticoagulants: The patient has taken no previous anticoagulant or antiplatelet agents. ASA Grade Assessment: III - A patient with severe systemic disease. After reviewing the risks and benefits, the patient was deemed in satisfactory condition to undergo the procedure. The anesthesia plan was to use monitored anesthesia care (MAC). Immediately prior to administration of medications, the patient was re-assessed for adequacy to receive sedatives. The heart rate, respiratory rate, oxygen saturations, blood pressure, adequacy of pulmonary ventilation, and response to care were monitored throughout the procedure. The physical status of the patient was re-assessed after the procedure. The Endoscope was introduced through the mouth, and advanced to the third part of duodenum. The upper GI endoscopy was accomplished without difficulty. The patient tolerated the procedure well. Findings: No gross lesions were noted in the entire esophagus. Estimated blood loss: none. Localized mild inflammation characterized by congestion (edema) was found in the prepyloric region of the stomach. One non-bleeding cratered gastric ulcer with no stigmata of bleeding was found at the pylorus. The lesion was 10 mm in largest dimension. This was biopsied with a cold forceps for histology. Estimated blood loss was minimal. The ampulla, duodenal bulb, first portion of the duodenum and second portion of the duodenum were normal. Impression: - No gross lesions in esophagus. - Chronic gastritis. - Non-bleeding gastric ulcer with no stigmata of bleeding. Biopsied. - Normal ampulla, duodenal bulb, first portion of the duodenum and second portion of the duodenum. Recommendation: - Admit the patient to hospital [facility] for ongoing care. - Resume regular diet. - Use sucralfate tablets 1 gram PO BID for 4 weeks. - Use Protonix (pantoprazole) 40 mg PO daily indefinitely. Attending Participation: I personally performed the entire procedure. Fabian Buchanan MD Fabian Buchanan MD 01/26/2020 2:58:21 PM Electronically signed by Fabian Buchanan MD Number of Addenda: 0 Note Initiated On: 01/26/2020 1:52 PM Estimated Blood Loss: Estimated blood loss was minimal.
[2020-02-04] MEDS ORDERED: ANAS1TAB2 PO (14:35)
== END 2020-01-26 17:24 | disposition home or self-care (01) | DRG 378 ==
LOC: M ED 12:01 → EDBD 12:01 → MERGE 15:25 → M ED INP 15:25 → ENRESERV 16:10 → M PCU 18:09
PROVIDERS: ADMIT Family Medicine; ATTEND Family Medicine
PROC: 30233N1 Transfusion of Nonautologous Red Blood Cells into Peripheral Vein, Percutaneous Approach (ICD-10-PCS; principal; 2020-01-24)
PROC: 0DBG8ZX Excision of Left Large Intestine, Via Natural or Artificial Opening Endoscopic, Diagnostic (ICD-10-PCS; 2020-01-26)
DX: K92.2 Gastrointestinal hemorrhage, unspecified (principal); C78.7 Secondary malignant neoplasm of liver and intrahepatic bile duct; C78.00 Secondary malignant neoplasm of unspecified lung; C79.51 Secondary malignant neoplasm of bone; C50.919 Malignant neoplasm of unspecified site of unspecified female breast; I25.10 Atherosclerotic heart disease of native coronary artery without angina pectoris; E11.9 Type 2 diabetes mellitus without complications; I10 Essential (primary) hypertension; D64.9 Anemia, unspecified; Z95.2 Presence of prosthetic heart valve; Z79.899 Other long term (current) drug therapy; Z88.0 Allergy status to penicillin; Z87.891 Personal history of nicotine dependence

== ENCOUNTER → 2020-06-30 | Outpatient (CLI) | payer MEDICARE, OTHER ==
[~2020-06-30] MED LIST changes: +AMLO1TAB24 PO; +ANAS1TAB2 PO; +ATOR1TAB21 PO; +DULO1CAP6 PO; +GABA-282 PO; +GLIP10TA PO; +ISOS1TAB35 PO; -ISOS30TA4 PO; +LISI10TA22 PO; +LISI20TA33 PO; -LISI40TA PO; +LISI40TA4 PO; +METF10004 PO; +PANT40TA29 PO; +SUCR1TA PO
--- NOTE | 2020-07-02 18:14 | REP ---
INDICATION: RESTAGING RIGHT BREAST CANCER C50.811. Status post lumpectomy, radiation therapy, and chemotherapy. COMPARISON: Comparison prior PET-CT studies are from July 04, 2019 and January 01, 2020.. TECHNIQUE: Forty-nine minutes following the intravenous injection of a 15.77 mCi dose of F-18 FDG, three-dimensional PET scintigraphy is acquired from the skull base to the proximal thighs. Triplanar noncontrast CT scanning is acquired through the same anatomic range for attenuation correction, and image registration with scan parameters optimized to minimize radiation exposure to the patient. PET scintigraphy and CT datasets were fused and displayed on a workstation with multiplanar and projection display capability. FINDINGS: There is widespread blastic skeletal metastatic disease again noted. Many of the previously noted lesions are somewhat larger but they remain predominantly blastic and only a few are associated with mildly hypermetabolic uptake. In general, they are less metabolically active. A mildly hypermetabolic uptake is seen in lesions in the following locations: Left iliac bone, T9, T8, and T2. The area of T2 uptake appears to be new. Maximum standard uptake value here is 3.82. No abnormal pulmonary parenchymal uptake is seen. No abnormal omero uptake is observed. Nodular changes remain in the lung moore is essentially unchanged but no hypermetabolic uptake. No abnormal hepatic hypermetabolic uptake is seen. IMPRESSION: Improvement noted in the pattern of metastatic uptake as above. <Electronically signed by Vadim Moore > 07/02/20 [id number]
== END ==
LOC: M PLARAD 13:19
PROVIDERS: ATTEND Internal Medicine Medical Oncology
DX: C50.811 Malignant neoplasm of overlapping sites of right female breast (principal)
CPT/HCPCS: 78815; A9552

== ENCOUNTER → 2020-07-04 | Outpatient (REF) | payer MEDICARE, OTHER ==
[2020-07-04 11:42] LABS: CHOLESTEROL RISK RATIO 2.888 (<5)
[2020-07-04 11:50] LABS: CREATININE, URINE < 13.0 MG/DL; MALB URINE SIEMENS < 5.0 MG/L
== END ==
LOC: M SFHCLERA 10:42
PROVIDERS: ATTEND Family Medicine
DX: E78.2 Mixed hyperlipidemia (principal); E11.9 Type 2 diabetes mellitus without complications

== ENCOUNTER → 2020-12-01 | Outpatient (CLI) | payer MEDICARE, OTHER ==
[~2020-12-01] MED LIST changes: +HYDR-4571 PO
== END ==
LOC: M PLARAD 09:33
PROVIDERS: ATTEND Internal Medicine Medical Oncology
DX: C50.812 Malignant neoplasm of overlapping sites of left female breast (principal)

== ENCOUNTER → 2020-12-22 | Outpatient (CLI) | payer MEDICARE, OTHER ==
--- NOTE | 2020-12-22 12:07 | REP ---
INDICATION: RESTAGING BREAST CANCER C50.812. Left breast carcinoma diagnosed in 2011 status post lumpectomy radiation therapy and chemotherapy. Metastatic disease recurrence June of 2019. Increasing tumor markers. COMPARISON: Comparison PET-CT studies are reviewed from June 30, 2020 and January 01, 2020.. TECHNIQUE: Fifty-one minutes following the intravenous injection of a 9.12 mCi dose of F-18 FDG, three-dimensional PET scintigraphy is acquired from the skull base to the proximal thighs. Triplanar noncontrast CT scanning is acquired through the same anatomic range for attenuation correction, and image registration with scan parameters optimized to minimize radiation exposure to the patient. PET scintigraphy and CT datasets were fused and displayed on a workstation with multiplanar and projection display capability. FINDINGS: Head and neck soft tissues are unremarkable. There is no evidence of adenopathy or soft tissue hypermetabolic focus. There is compelling evidence of disease progression in the interval since the most recent prior PET-CT study from June 30, 2020. There are widespread hypermetabolic skeletal lesions much more numerous than on the prior study ranging in metabolic activity up to a maximum SUV value of 6.16. There is a new hypermetabolic metastatic lesion in the liver with maximum SUV value of 5.02. There is a equivocal right hilar lymph node focus with maximum SUV value 3.35. There are multiple noncalcified pulmonary nodules however these are unchanged. No pulmonary parenchymal hypermetabolic uptake is seen. IMPRESSION: Progressive, now widespread skeletal metastatic disease pattern. New lesion in the right lobe of the liver. Findings consistent with progression. <Electronically signed by Vadim Moore > 12/22/20 [id number]
== END ==
LOC: M PLARAD 07:43
PROVIDERS: ATTEND Internal Medicine Medical Oncology
DX: C50.812 Malignant neoplasm of overlapping sites of left female breast (principal); K76.89 Other specified diseases of liver
CPT/HCPCS: 78815; A9552

== ENCOUNTER 2021-04-06 14:57 | Inpatient (IN) | payer MEDICARE, OTHER ==
[~2021-04-06] VITALS: Ht 165.1 cm; Wt 63.2 kg
[~2021-04-06 14:57] MED LIST changes: +CAPE1TAB2 PO; +IBRA100C PO; +PALB100T PO; +PROC10TA5 PO; +RALO1TAB PO
[2021-04-06 16:44] LABS: BASO % 0.4 % (0.0-1.0); EOS # 0.2 10^3/uL (0.0-0.5); EOS % 2.7 % (0.0-3.0); HEMATOCRIT 25.2 % (36.0-47.0); HEMOGLOBIN 7.8 g/dl (12.0-15.5); LYMPH # 1.3 10^3/uL (1.5-5.0); LYMPH % 23.5 % (24.0-44.0); MEAN CORPUSCULAR HEMOGLOBIN 28.4 pg (27.0-33.0); MEAN CORPUSCULAR VOLUME 91.6 fl (80.0-96.0); MONO # 0.4 10^3/uL (0.0-0.8); MONO % 6.3 % (2.0-8.0); NEUTROPHILS # 3.5 10^3/uL (1.5-8.5); PLATELET COUNT, AUTOMATED 167 10^3/uL (150-450); RED BLOOD COUNT 2.75 10^6/uL (4.00-5.40); WHITE BLOOD COUNT 5.6 10^3/uL (4.0-10.0)
[2021-04-06 16:49] LABS: CK-MB VALUE MASS 1.7 NG/ML (<3.6); MB/CK RELATIVE INDEX 0.6 (< OR =4)
[2021-04-06 16:52] LABS: INR 0.99; PROTHROMBIN TIME 13.5 SECONDS (12.7-14.5)
[2021-04-06 16:53] LABS: PARTIAL THROMBOPLASTIN TIME 39.4 SECONDS (25.9-37.0)
[2021-04-06 17:57] LABS: RSV AMPLIFICATION NEGATIVE (NEGATIVE)
[2021-04-06] MEDS ORDERED: LORazepam 2 MG/ML VIAL IV STA (18:08)
[2021-04-06] MEDS ORDERED: PROHANCE 279.3MG/ML 5ML VIAL As Ordered ONE (18:36)
[2021-04-06] MEDS ORDERED: PANT-23 PO (20:10)
[2021-04-06] MEDS ORDERED: SUCR1TAB56 PO (20:10)
[2021-04-06] MEDS ORDERED: SENN-80 PO (20:10)
[2021-04-06] MEDS ORDERED: HOME MED LIST COMPLETE! XX SCH (20:15)
[2021-04-06] MEDS: HumaLOG INSULIN (NovoLOG) PER UNIT SC SCH (21:00)
[2021-04-06] MEDS ORDERED: dexameTHASONE 20MG/5ML VIAL (J1100 PER 1MG) IV ONE (21:45)
[2021-04-06] MEDS ORDERED: hydrOXYzine 25 MG TAB PO PRN (22:35)
[2021-04-06] MEDS ORDERED: SENNA 8.6 MG TAB (SENOKOT) PO PRN (22:35)
[2021-04-06] MEDS ORDERED: DEXTROSE 50% 50 ML SYRINGE IV PRN (23:20)
[2021-04-06] MEDS ORDERED: GLUCAGON INJ 1MG VIAL SC PRN (23:20)
[2021-04-06] MEDS ORDERED: GLUCOSE 4GM CHEW TABLET PO PRN (23:20)
[2021-04-07] MEDS: ACETAMINOPHEN TAB 650MG DOSE (2X325MG) PO PRN ×3 (00:17→22:44)
[2021-04-07] MEDS: GABAPENTIN 300 MG CAP PO SCH ×3 (00:17→20:12)
[2021-04-07] MEDS: SUCRALFATE 1 GM TAB PO SCH ×3 (00:18→20:12)
[2021-04-07] MEDS: CARVedilol 6.25 MG TAB PO SCH ×3 (00:19→20:13)
[2021-04-07 00:38] LABS: HEMATOCRIT 25.5 % (36.0-47.0); MEAN CORPUSCULAR HEMOGLOBIN 28.6 pg (27.0-33.0); MEAN CORPUSCULAR HGB CONC 31.4 g/dl (32.0-36.5); MEAN CORPUSCULAR VOLUME 91.1 fl (80.0-96.0); PLATELET COUNT, AUTOMATED 178 10^3/uL (150-450); WHITE BLOOD COUNT 5.3 10^3/uL (4.0-10.0)
[2021-04-07 01:13] LABS: CALCIUM LEVEL 8.9 MG/DL (8.8-10.2); CREATININE FOR GFR 1.36 MG/DL (0.55-1.30); GLOMERULAR FILTRATION RATE 40.7 (>39); POTASSIUM SERUM 5.2 MEQ/L (3.5-5.1)
[2021-04-07] MEDS ORDERED: CALCIUM GLUCONATE 1,000 MG in D5W MINI-BAG PLUS 100 ML IV ONE (01:25)
[2021-04-07] MEDS ORDERED: PATIROMER SORBITEX CALCIUM 8.4 GM POWDER PACKET (VELTASSA) PO ONE (01:25)
[2021-04-07] MEDS ORDERED: NS 500 ML IV ONE (01:25)
[2021-04-07 05:36] LABS: APPEARANCE, URINE CLEAR (CLEAR); BACTERIA, URINE AUTO NEGATIVE (NEGATIVE); BILIRUBIN, URINE AUTO NEGATIVE (NEGATIVE); BLOOD, URINE BLOOD NEGATIVE (NEGATIVE); COLOR, URINE STRAW (YELLOW); GLUCOSE, URINE (UA) AUTO NEGATIVE (NEGATIVE); KETONE, URINE AUTO NEGATIVE (NEGATIVE); LEUKOCYTE ESTERASE, URINE AUTO NEGATIVE (NEGATIVE); MUCUS, URINE SMALL (NEGATIVE); NITRITE, URINE AUTO NEGATIVE (NEGATIVE); PROTEIN, URINE AUTO NEGATIVE (NEGATIVE); RBC, URINE AUTO 8 /HPF (0-3); SPECIFIC GRAVITY URINE AUTO 1.004 (1.002-1.035); SQUAMOUS EPITHELIAL CELL UR AU 0 /HPF (0-6); UROBILINOGEN, URINE AUTO 0.2 mg/dL (0.0-2.0); WBC, URINE AUTO 3 /HPF (0-3)
[2021-04-07] MEDS: HEPARIN SOD (PORCINE) 5000UNITS/ML 1ML VIAL/SYRINGE SC SCH ×3 (06:00→20:14)
[2021-04-07] MEDS ORDERED: dexameTHASONE 20MG/5ML VIAL (J1100 PER 1MG) IV SCH ×2 (06:00→08:00)
[2021-04-07 07:16] LABS: HEMATOCRIT 25.3 % (36.0-47.0); HEMOGLOBIN 7.9 g/dl (12.0-15.5); MEAN CORPUSCULAR HEMOGLOBIN 28.4 pg (27.0-33.0); MEAN CORPUSCULAR HGB CONC 31.2 g/dl (32.0-36.5); PLATELET COUNT, AUTOMATED 167 10^3/uL (150-450); RED BLOOD COUNT 2.78 10^6/uL (4.00-5.40); WHITE BLOOD COUNT 5.3 10^3/uL (4.0-10.0)
[2021-04-07 07:42] LABS: CALCIUM LEVEL 9.4 MG/DL (8.8-10.2); CREATININE FOR GFR 1.11 MG/DL (0.55-1.30); GLOMERULAR FILTRATION RATE 51.4 (>39); POTASSIUM SERUM 4.9 MEQ/L (3.5-5.1)
[2021-04-07 08:00] VITALS: BP 147/87
[2021-04-07] MEDS: ISOSORBIDE MON. (IMDUR) 30 MG XR TAB PO SCH (08:22)
[2021-04-07] MEDS: CLOPIDOGREL 75 MG TAB PO SCH (08:23)
[2021-04-07] MEDS: amLODIPine 5 MG TAB PO SCH (08:23)
[2021-04-07] MEDS: PANTOPRAZOLE 40MG TAB (PROTONIX) PO SCH (08:23)
[2021-04-07] MEDS: dexameTHASONE 4 MG/ML 1ML VIAL (J1100 PER 1MG) IV SCH ×2 (08:24→16:28)
[2021-04-07] MEDS: HumaLOG INSULIN (NovoLOG) PER UNIT SC SCH ×4 (08:24→20:13)
[2021-04-07] MEDS: PROCHLORPERAZINE 5 MG TAB (S0183) PO SCH ×4 (08:28→18:36)
[2021-04-07 12:00] VITALS: BP 139/81
[2021-04-07 16:00] VITALS: BP 143/76
[2021-04-07 20:00] VITALS: BP 170/78
[2021-04-08] MEDS: dexameTHASONE 4 MG/ML 1ML VIAL (J1100 PER 1MG) IV SCH ×2 (01:00→08:15)
[2021-04-08 04:00] VITALS: BP 100/49
[2021-04-08 06:03] LABS: HEMOGLOBIN 7.6 g/dl (12.0-15.5); MEAN CORPUSCULAR HEMOGLOBIN 28.7 pg (27.0-33.0); MEAN CORPUSCULAR HGB CONC 31.7 g/dl (32.0-36.5); MEAN CORPUSCULAR VOLUME 90.6 fl (80.0-96.0); PLATELET COUNT, AUTOMATED 182 10^3/uL (150-450); RED BLOOD COUNT 2.65 10^6/uL (4.00-5.40); WHITE BLOOD COUNT 7.9 10^3/uL (4.0-10.0)
[2021-04-08 06:26] LABS: BLOOD UREA NITROGEN 20 MG/DL (7-18); CALCIUM LEVEL 9.4 MG/DL (8.8-10.2); CARBON DIOXIDE LEVEL 22 MEQ/L (21-32); CHLORIDE LEVEL 107 MEQ/L (98-107); CREATININE FOR GFR 0.94 MG/DL (0.55-1.30); GLOMERULAR FILTRATION RATE > 60.0 (>39); GLUCOSE, FASTING 188 MG/DL (70-100); POTASSIUM SERUM 4.2 MEQ/L (3.5-5.1); SODIUM LEVEL 138 MEQ/L (136-145)
[2021-04-08] MEDS: HEPARIN SOD (PORCINE) 5000UNITS/ML 1ML VIAL/SYRINGE SC SCH (06:42)
[2021-04-08] MEDS: PROCHLORPERAZINE 5 MG TAB (S0183) PO SCH ×2 (06:42)
[2021-04-08 08:13] VITALS: BP 175/85
[2021-04-08] MEDS: SUCRALFATE 1 GM TAB PO SCH (08:16)
[2021-04-08] MEDS: PANTOPRAZOLE 40MG TAB (PROTONIX) PO SCH (08:16)
[2021-04-08] MEDS: CARVedilol 6.25 MG TAB PO SCH (08:16)
[2021-04-08] MEDS: amLODIPine 5 MG TAB PO SCH (08:16)
[2021-04-08] MEDS: GABAPENTIN 300 MG CAP PO SCH (08:16)
[2021-04-08] MEDS: HumaLOG INSULIN (NovoLOG) PER UNIT SC SCH (08:16)
[2021-04-08 08:17] VITALS: BP 175/85
[2021-04-08] MEDS: ISOSORBIDE MON. (IMDUR) 30 MG XR TAB PO SCH (08:17)
[2021-04-08] MEDS: CLOPIDOGREL 75 MG TAB PO SCH (08:17)
[2021-04-08] MEDS ORDERED: DEXA4TA PO (09:19)
[2021-04-08 11:30] VITALS: BP 152/78
[2021-04-08] MEDS ORDERED: ATIV1TAB10 PO (13:38)
[2021-04-09] MEDS ORDERED: DEXA4TA PO (11:02)
[2021-04-16] MEDS ORDERED: MORP1SOL PO (13:23)
[2021-04-16] MEDS ORDERED: DEXA4TA PO (13:23)
== END 2021-04-08 11:57 | disposition home health service (06) | DRG 54 ==
LOC: M ED 14:57 → M ED INP 14:58 → ENRESERV 04-07 06:51 → M PCU 04-07 07:28 → OBSVTOIN 04-07 09:40
PROVIDERS: ADMIT Internal Medicine; ATTEND Internal Medicine
DX: C79.31 Secondary malignant neoplasm of brain (principal); G93.6 Cerebral edema; C79.51 Secondary malignant neoplasm of bone; C78.7 Secondary malignant neoplasm of liver and intrahepatic bile duct; N17.9 Acute kidney failure, unspecified; E87.1 Hypo-osmolality and hyponatremia; C50.919 Malignant neoplasm of unspecified site of unspecified female breast; E87.5 Hyperkalemia; F32.9 Major depressive disorder, single episode, unspecified; F41.9 Anxiety disorder, unspecified; I25.10 Atherosclerotic heart disease of native coronary artery without angina pectoris; K59.00 Constipation, unspecified; E11.9 Type 2 diabetes mellitus without complications; D64.9 Anemia, unspecified; Z79.899 Other long term (current) drug therapy; Z88.0 Allergy status to penicillin; G89.3 Neoplasm related pain (acute) (chronic); Z95.2 Presence of prosthetic heart valve; E78.5 Hyperlipidemia, unspecified; I10 Essential (primary) hypertension; Z87.891 Personal history of nicotine dependence

== ENCOUNTER 2021-04-22 08:27 | Outpatient (RCR) | payer MEDICARE, OTHER ==
[~2021-04-22 08:27] MED LIST changes: +DEXA4TA PO; +MORP1SOL PO; +PANT-23 PO; +PROC10TA4 PO; -PROC10TA5 PO; +SENN-80 PO; +SUCR1TAB56 PO
== END 2021-04-28 ==
LOC: M ONCR 08:27
PROVIDERS: ATTEND General Practice
DX: C79.31 Secondary malignant neoplasm of brain (principal)

== ENCOUNTER 2021-04-28 05:39 | Emergency (ER) | payer MEDICARE, OTHER ==
[~2021-04-28] VITALS: Ht 165.1 cm; Wt 63.2 kg
[2021-04-28 07:33] LABS: RSV AMPLIFICATION NEGATIVE (NEGATIVE)
[2021-04-28] MEDS ORDERED: ETOMIDATE INJ 20MG/10ML VIAL IV STA (07:59)
[2021-04-28] MEDS ORDERED: EPINEPHrine 1MG/10ML SYRINGE 1.5IN IV STA (07:59)
[2021-04-28] MEDS ORDERED: ROCURONIUM BROMIDE 50 MG/5 ML VIAL IV SCH (08:00)
== END 2021-04-28 09:01 | disposition expired ==
LOC: M ED 05:39
DX: I46.9 Cardiac arrest, cause unspecified (principal); C50.919 Malignant neoplasm of unspecified site of unspecified female breast; E11.9 Type 2 diabetes mellitus without complications; Z88.0 Allergy status to penicillin; Z90.12 Acquired absence of left breast and nipple; Z79.899 Other long term (current) drug therapy; Z79.52 Long term (current) use of systemic steroids; Z79.4 Long term (current) use of insulin